=== PATIENT | female | born 1985 | race Caucasian/White ===

== ENCOUNTER 2017-11-14 16:20 | Emergency (ER) | payer BC, MEDICAID ==
--- OUTSIDE RECORDS SUMMARY | 2017-11-14 16:52 | XMS REPORT ---
:1985 External Reference #:[id number] Author Organization [facility] [place] Address [address] [address] Phone [phone] Care Team Providers Name Role Phone Clair Piper N.P. Primary Care Physician Unavailable Payers Type Date Identification Numbers Payment Provider Subscriber Commercial Policy Number: [id number] [employer] Lazaro Cullen PayID: [id number] [address] [address] [place] [address] [facility] Policy Number: [id number] Medicaid Jose Miguel Cullen Group Name: 1 1 [address] PayID: [id number] [place] [address] Problems Description No Information Family History Date Family Member(s) Problem(s) Comments Father Chronic Obstructive Pulmonary Disease (COPD) Father due to COPD () Father Smoker Father Hepatitis C Father Tuberculosis Father Emphysema Father Diabetes Type II Mother Asthma Siblings 3 Sisters, one sister with asthma Social History Type Date Description Comments Marital Status Lives With Lives With Son Lives With Daughter Occupation Homemaker Cigarette Use Former Cigarette Smoker Smoked 1/2 ppd for 15 years ETOH Use Denies alcohol use Smoking Patient is a former smoker Recreational Drug Use Denies Drug Use Daily Caffeine Consumes on average 1 cup of regular coffee per day Exercise Type/Frequency Exercises sporadically Allergies, Adverse Reactions, Alerts Date Description Reaction Status Severity Comments 06/09/2017 Penicillin active rash fever Medications Medication Date Status Form Strength Qnty SIG Indications Ordering Provider Sertraline HCL / Active Tablets 75mg 1 by mouth Unknown 0000 every day Flovent HFA 00/ Active Aerosol 220mcg/Ac inhale two Unknown 0000 t puffs by mouth twice a day Albuterol Sulfate / Active Nebulizer (2.5mg/3M 1 vial via Unknown 0000 L) 0.083% nebulizer 4 times daily as needed Multi For Her / Active Tablets once a day Unknown 0000 Meclizine HCL / Active Tablets 12.5mg as Unknown 0000 directed Vitamin D / Active Tablets 1000Unit 1 every Unknown (Cholecalciferol) 0000 day Vitamin E / Active Capsules 100Unit 1 by mouth Unknown 0000 every day Cetirizine HCL / Active Tablets 10mg 1 by mouth Unknown 0000 every day Doxycycline / Hx Capsules 100mg one tablet Unknown Hyclate 0000 twice daily for 10 days. Probiotic Daily / Hx Capsules 1 by mouth Unknown 0000 every day Levocetirizine / Hx Tablets 5mg one tab Unknown Dihydrochloride 0000 daily Vital Signs Date Vital Result Comment 10/16/2017 Height 64 inches 5'4" Weight 179.00 lb Heart Rate 72 /min BP Systolic Sitting 110 mmHg BP Diastolic Sitting 76 mmHg Respiratory Rate 14 /min O2 % BldC Oximetry 99 % BMI (Body Mass Index) 30.7 kg/m2 Neck Circumference in inches 14 10/13/2017 Heart Rate 90 /min BP Systolic Sitting 98 mmHg BP Diastolic Sitting 62 mmHg Respiratory Rate 16 /min Body Temperature 98.5 F 09/01/2017 Heart Rate 78 /min BP Systolic Sitting 110 mmHg BP Diastolic Sitting 66 mmHg Respiratory Rate 16 /min Body Temperature 98.4 F 07/21/2017 Heart Rate 84 /min Respiratory Rate 16 /min Body Temperature 98.5 F 06/09/2017 Height 65 inches 5'5" Heart Rate 72 /min BP Systolic Sitting 102 mmHg BP Diastolic Sitting 68 mmHg Respiratory Rate 16 /min Body Temperature 99.3 F Results Test Date Test Result H/L Range Note Laboratory test finding 07/21/2017 Surgical Pathology <pending> 1 Cytology Non-Friction Saw Operator SEE RESULT BELOW 1, 2 1 [id number] 2 SEE RESULT BELOW Name: JOSE MIGUEL CULLEN : [address]: Christy Cm MD Acct: [id number] Unit: [id number] AGE: 32 Location: [facility] Re07/21/17 SEX: F Status: REG REF SPEC: [id number] MARIAM: 07/21/17-[address]: Christy Cm MD REQ: [id number] RECD: 07/21/17-170 STATUS: SOUT _ ORDERED: [facility], LEVEL 4 COMMENTS: [id number] FINAL DIAGNOSIS Breast, left, fine needle aspiration: -- Benign adipose tissue and scant benign ductal epithelial elements. See comment. Comment: The aspirate smears demonstrate scattered benign appearing fibroadipose tissue fragments and a few small benign appearing mammary epithelial elements in clusters. Correlation with clinical and imaging findings is recommended. Additional studies is warranted. BREAST LEFT - LEFT BREAST CUST FINE NEEDLE ASPIRATION CLINICAL HISTORY Left breast cyst. PRE-OPERATIVE DIAGNOSIS . GROSS DESCRIPTION 2 Alcohol fixed slide(s) received from clinician and needle rinse in formalin for cell block. Signed (signature on file) William Fermin MD 1041 END OF REPORT * ML=Testing performed at Main Lab DEPARTMENT OF PATHOLOGY, [address] [place] [address] William Fermin M.D. Director [facility] # [id number] Procedures Description No Information Encounters Type Date Location Provider CPT E/M Dx Office Visit 10/13/2017 [facility] [place] [id number] N63.20 2:00p [facility] N63.10 Office Visit 09/01/2017 2:00p [facility] [place] [address] N64.59 [facility] Office Visit 07/21/2017 1:30p [facility] [place] [address] N64.4 [facility] N63.20 Office Visit 06/09/2017 3:00p [facility] [place] [address] N64.4 [facility] N64.59 Plan of Care Future Appointment(s):01/06/2018 1:00 pm - Tracy Odell DNP, RN, BRANCH ASSOCIATE-BC at [facility]11/24/2017 3:00 pm - Christy Cm MD at [facility]10/16/2017 - Anushka Peace, MDR06.83 SnoringNew Orders:Sleep StudyFollow up:7 [id number] Other fatigue
[2017-11-14] MEDS ORDERED: NS 0.9% 1000 ML* 1,000 ML IV ONE (16:59)
[2017-11-14 17:24] LABS: ABS Basophils 0.1 10^3/ul (0-0.2); ABS Eosinophils 0.4 10^3/ul (0-0.6); ABS Monocytes 0.6 10^3/ul (0-0.8); ABS Neutrophils 3.5 10^3/ul (1.5-7.7); ABS Nucleated RBC 0 10^3/ul; Hematocrit 37 % (35-47); Hemoglobin 12.6 g/dl (12.0-16.0); Lymphocyte % 39.8 % (25-47); Mean Corpuscular HGB Conc 34 g/dl (31-36); Mean Corpuscular Hemoglobin 29 pg (27-31); Mean Corpuscular Volume 86 fL (80-97); Mean Platelet Volume 9.4 um3 (7.4-10.4); Nucleated Red Blood Cells % 0; Platelet Count 215 10^3/ul (150-450); Red Cell Distribution Width 14 % (10.5-15); White Blood Count 7.6 10^3/ul (3.5-10.8)
[2017-11-14 18:04] LABS: EGFR Non-African American 102.7 (>60)
[2017-11-14 18:35] LABS: Urine Appearance Clear; Urine Blood 3+ (Negative); Urine Ketones Negative (Negative); Urine Protein 2+(100 mg/dL) (Negative); Urine Specific Gravity 1.003 (1.010-1.030); Urine Urobilinogen Negative (Negative)
[2017-11-14 18:38] LABS: Urine Color Red
--- NOTE | 2017-11-14 19:03 | RAD ---
Indication: 2 days pelvic pain increasing on the RIGHT for the past day. Comparison: May 13, 2012 Technique: Transvaginal pelvic ultrasound. Report: 8.8 x 5.6 x 6.6 cm retroverted uterus is mildly heterogeneous in echotexture without visualized discrete focal lesions. No cystic spaces are identified to strongly favor presence of adenomyosis. 5.4 mm normal thickness endometrium. No significant free pelvic fluid evident. 3.9 x 2.0 x 2.6 cm RIGHT ovary with documented vascular flow is remarkable for small follicles only. 3.5 x 1.8 x 2.1 cm LEFT ovary with documented vascular flow is remarkable for small follicles only. No visualized extra ovarian adnexal region lesions evident. IMPRESSION: Negative pelvic ultrasound.
[2017-11-14] MEDS ORDERED: Morphine VIAL* 4 MG/ML VIAL (1 ml vial) IV ONE (19:04)
[2017-11-14] MEDS ORDERED: Ondansetron ODT TAB* 4 MG PO ONE (19:04)
[2017-11-14] MEDS ORDERED: Iohexol 300* (CONTRAST) 10 ML SDV IV ONE (20:26)
--- NOTE | 2017-11-14 20:56 | RAD ---
INDICATION: Cramping abdominal/RIGHT abdomen pain. Loose stools. COMPARISON: Pelvic ultrasound of the same date. TECHNIQUE: Multidetector CT images were obtained from the lung bases to the ischial tuberosities with 100 mL Omnipaque 300 IV contrast. Multiplanar reformation. REPORT: Unremarkable visualized inferior thorax. The liver, gallbladder, pancreas, and spleen are unremarkable. Negative for CT abnormality of the upper GI, small bowel, or appendix visualized medial and posterior to the cecum. Physiologic small volume of free fluid in the cul-de-sac. Negative for free air or significant hernias. Normal adrenal glands. Unremarkable kidneys with symmetric nephrograms and pyelograms. No abnormality along the course of the nondilated ureters or at the level of the largely decompressed urinary bladder limiting assessment. Pelvic phleboliths noted. Retroverted uterus. No CT abnormality of the adnexal regions. Negative for lymphadenopathy. Normal diameter abdominal aorta and iliac arteries. Normal variant circumaortic LEFT renal vein. Physiologic distention of the IVC. Small Schmorl node endplate herniations at the L3 and L4 vertebral bodies. Negative for suspicious osseous lesions. IMPRESSION: 1. Normal appendix documented. 2. No acute abnormality of the alimentary tract evident. 3. Physiologic small volume of free fluid in the cul-de-sac. 4. Negative for obstructive uropathy.
--- NOTE | 2017-11-14 21:03 | ED ---
Abdominal Pain/Female - HPI Summary HPI Summary: Patient presents with abdominal pain and's. Started on November 11. She reports she typically has. With cramps however this time her cramps are worse than she' s had some clots passed. She reports she is going through a pad an hour for the past 3 days however her pad here does not appear to be saturated after spent here for a while. Reports her menstrual symptoms alone would not have brought her in but she developed dizziness right lower quadrant pain, pain along the right side along with nausea. loose stool and headache at about 12:30 today. Her headache is around her right orbit she denies photophobia, dizziness , neck pain, fevers, chills, vomiting, or. She's been drinking a lot of water today and has had increased urination as a result however she denies dysuria, urgency, frequency, flank pain. She ate this morning without difficulty. She' s been taking Tylenol alternating with ibuprofen (1000 mg and 400 mg respectively) she is a history of ovarian cysts multiple times in the past and she believes they were on her right side. No need for surgical intervention - resolved on their own?. She also has a history of abnormal Pap smears with precancerous cells requiring her to have positive P's. No further surgical intervention such as Leanne Stroud. She has no known history of fibroids edema myosis or other reproductive pathologies. She's been 5 times with 2 miscarriages and 2 living children. One of her children was born with cardiac issues and shortly after 1-year-of lie ( this was about 14 months ago). She denies history of UTI, urinary tract stone. She does reports she's had "issues" with her appendix when she was however this resolved with observation alone. Denies constipation, diarrhea, ulcers colitis, Crohn's, diverticulitis. Only other medical issues are a large thyroid with 2 benign nodules, lumps in her breasts which are being followed, asthma, and seasonal allergies. She has no known history of bleeding disorders nor there any in the family. She follows annually with her TANK CAR INSPECTOR, Dr. Simpson - reports her periods got heavier and more painful after tubal ligation in 2016. She has never tried hormone therapy to control her dysmenorrhea but she is open to this therapy if appropriate. - History of Current Complaint Chief Complaint: EDOBProblems Stated Complaint: FLANK PAIN Time Seen by Provider: 11/14/17 17:54 Hx Obtained From: Patient, Family/Parole Officer - female friend Hx Last Menstrual Period: Unsure, on depo shots Pain Intensity: 7 Allergies/Adverse Reactions: Allergies Allergy/AdvReac Type Severity Reaction Status Date / Time Penicillins Allergy Rash Verified 11/14/17 16:39 PMH/Surg Hx/FS Hx/Imm Hx Endocrine/Hematology History: Denies: Hx Anticoagulant Therapy, Hx Diabetes, Hx Thyroid Disease, Hx Anemia Cardiovascular History: Denies: Hx Hypertension, Hx Pacemaker/ICD Respiratory History: Reports: Hx Asthma Denies: Hx Chronic Obstructive Pulmonary Disease (COPD) GI History: Denies: Hx Jaundice, Hx Ulcer History: Denies: Hx Renal Disease Musculoskeletal History: Reports: Other Musculoskeletal History - broke left arm x2 Sensory History: Reports: Hx Contacts or Glasses Opthamlomology History: Reports: Hx Contacts or Glasses Neurological History: Denies: Hx Dementia, Hx Seizures Psychiatric History: Reports: Hx Anxiety, Hx Depression Denies: Hx Substance Abuse - Cancer History Hx Chemotherapy: No Hx Radiation Therapy: No - Surgical History Surgery Procedure, Year, and Place: D&C 2003 Hx Anesthesia Reactions: No Infectious Disease History: No Infectious Disease History: Denies: Hx Hepatitis, Hx Human Immunodeficiency Virus (HIV), Traveled Outside the [place] in Last 30 Days - Social History Alcohol Use: None Substance Use Type: Reports: None Smoking Status (MU): Never Smoked Tobacco Type: Cigarettes Have You Smoked in the Last Year: No Physical Exam Vital Signs On Initial Exam: Initial Vitals Temp Pulse Resp BP Pulse Ox 98.1 F 59 14 137/83 100 11/14/17 16:22 11/14/17 16:22 11/14/17 16:22 11/14/17 16:22 11/14/17 16:22 Diagnostics - Vital Signs Vital Signs Temp Pulse Resp BP Pulse Ox 11/14/17 19:32 64 96 11/14/17 19:30 60 122/64 98 11/14/17 19:22 18 11/14/17 16:22 98.1 F 59 14 137/83 100 - Laboratory Lab Results: Lab Results 11/14/17 11/14/17 11/14/17 Range/Units 17:12 17:12 18:19 WBC 7.6 (3.5-10.8) 10^3/ul RBC 4.30 (4.0-5.4) 10^6/ul Hgb 12.6 (12.0-16.0) g/dl Hct 37 (35-47) % MCV 86 (80-97) fL MCH 29 (27-31) pg MCHC 34 (31-36) g/dl RDW 14 (10.5-15) % Plt Count 215 (150-450) 10^3/ul MPV 9.4 (7.4-10.4) um3 Neut % (Auto) 46.9 (38-83) % Lymph % (Auto) 39.8 (25-47) % Bent % (Auto) 7.3 H (0-7) % Eos % (Auto) 5.0 (0-6) % Baso % (Auto) 1.0 (0-2) % Absolute Neuts (auto) 3.5 (1.5-7.7) 10^3/ul Absolute Lymphs (auto) 3.0 (1.0-4.8) 10^3/ul Absolute Monos (auto) 0.6 (0-0.8) 10^3/ul Absolute Eos (auto) 0.4 (0-0.6) 10^3/ul Absolute Basos (auto) 0.1 (0-0.2) 10^3/ul Absolute Nucleated RBC 0 10^3/ul Nucleated RBC % 0 Sodium 138 L (139-145) mmol/L Potassium 3.6 (3.5-5.0) mmol/L Chloride 105 (101-111) mmol/L Carbon Dioxide 26 (22-32) mmol/L Anion Gap 7 (2-11) mmol/L BUN 14 (6-24) mg/dL Creatinine 0.67 (0.51-0.95) mg/dL Est GFR ( Amer) 132.0 (>60) Est GFR (Non-Af Amer) 102.7 (>60) BUN/Creatinine Ratio 20.9 H (8-20) Glucose 75 (70-100) mg/dL Calcium 9.3 (8.6-10.3) mg/dL Total Bilirubin 0.20 (0.2-1.0) mg/dL AST 14 (13-39) U/L ALT 14 (7-52) U/L Alkaline Phosphatase 59 (34-104) U/L C-Reactive Protein < 1.00 (< 5.00) mg/L Total Protein 6.9 (6.4-8.9) g/dL Albumin 3.9 (3.2-5.2) g/dL Globulin 3.0 (2-4) g/dL Albumin/Globulin Ratio 1.3 (1-3) Beta HCG, Quant < 0.60 mIU/mL Urine Color Red A Urine Appearance Clear Urine pH 8.0 (5-9) Ur Specific [place] 1.003 L (1.010-1.030) Urine Protein 2+(100 mg/dl) A (Negative) Urine Ketones Negative (Negative) Urine Blood 3+ A (Negative) Urine Nitrate Negative (Negative) Urine Bilirubin Negative (Negative) Urine Urobilinogen Negative (Negative) Ur Leukocyte Esterase Negative (Negative) Urine WBC (Auto) Trace(0-5/hpf) (Absent) Urine RBC (Auto) 3+(>10/hpf) A (Absent) Ur Squamous Epith Cells Present A (Absent) Urine Bacteria 1+ A (Absent) Hyaline Casts Present A (Absent) Urine Glucose Negative (Negative) Result Diagrams: 11/14/17 17:12 11/14/17 17:12 Lab Statement: Any lab studies that have been ordered have been reviewed, and results considered in the medical decision making process. Discharge - Sign-Out/Discharge Documenting (check all that apply): Discharge/Admit/Transfer - Discharge Plan Condition: Stable Disposition: HOME Prescriptions: Naproxen TAB* [Naprosyn 250 mg TAB*] 500 mg PO Q12HR PRN #20 tab PRN Reason: Pain Patient Education Materials: Dysmenorrhea (ED), Menorrhagia (ED) Referrals: Celi Piper NP [Primary Care Provider] - Deon Simpson MD [Medical Doctor] - Additional Instructions: The definitive cause of your pain was not identified today however there is strong clinical suspicion of dysmenorrhea or painful menstruation. This may be treated with warm compresses, [place] oil packs, warm baths, healthy nutrition and hydration, naproxen which was sent to your pharmacy and possibly hormone therapy. The latter may be discussed with her saturation diver - call Friday to schedule an appointment. *If in the meantime you develop fever, chills, vomiting, diarrhea, bleeding through a pad and/or tampon every hour for 24 consecutive hours, fatigue, chest pain, shortness of breath, return to the emergency department. - Billing Disposition and Condition Condition: STABLE Disposition: HOME
[2017-11-14 22:03] VITALS: BP 112/78
== END 2017-11-14 22:03 | disposition home or self-care (01) ==
LOC: ED 16:20
DX: N92.0 Excessive and frequent menstruation with regular cycle (principal); R10.84 Generalized abdominal pain
CPT/HCPCS: 36415; 74177; 76830; 80053; 81003; 81015; 84702; 85025; 86140; 87086; 96361; 96374; 99283; A9270-GY; J2270; Q9967

== ENCOUNTER 2018-06-09 19:15 | Emergency (ER) | payer BC ==
[2018-06-09 20:18] LABS: ABS Basophils 0.1 10^3/ul (0-0.2); ABS Eosinophils 0.4 10^3/ul (0-0.6); ABS Lymphocytes 3.5 10^3/ul (1.0-4.8); ABS Monocytes 0.8 10^3/ul (0-0.8); ABS Neutrophils 5.6 10^3/ul (1.5-7.7); ABS Nucleated RBC 0 10^3/ul; Eosinophil % 3.7 %; Hematocrit 33 % (35-47); Hemoglobin 10.9 g/dl (12.0-16.0); Lymphocyte % 34.2 %; Mean Corpuscular HGB Conc 34 g/dl (31-36); Mean Corpuscular Hemoglobin 30 pg (27-31); Mean Corpuscular Volume 88 fL (80-97); Mean Platelet Volume 8.6 fL (7.4-10.4); Nucleated Red Blood Cells % 0; Platelet Count 299 10^3/ul (150-450); Red Cell Distribution Width 14 % (10.5-15); White Blood Count 10.3 10^3/ul (3.5-10.8)
[2018-06-09 20:37] LABS: ALT 20 U/L (7-52); AST 18 U/L (13-39); Albumin 4.3 g/dL (3.2-5.2); Albumin/Globulin Ratio 1.4 (1-3); Alkaline Phosphatase 57 U/L (34-104); Anion Gap 5 mmol/L (2-11); BUN/Creatinine Ratio 19.4 (8-20); Blood Urea Nitrogen 12 mg/dL (6-24); C Reactive Protein < 1.00 mg/L (<8.01); CO2 Carbon Dioxide 27 mmol/L (22-32); Calcium 9.3 mg/dL (8.6-10.3); Chloride 105 mmol/L (101-111); EGFR Non-African American 112.3 (>60); Glucose 94 mg/dL (70-100); Potassium 3.9 mmol/L (3.5-5.0); Sodium 137 mmol/L (135-145); Total Protein 7.3 g/dL (6.4-8.9)
[2018-06-09 20:43] LABS: HCG Pregnancy < 0.60 mIU/mL
[2018-06-09] MEDS ORDERED: Famotidine TAB* 20 MG PO ONE (20:53)
[2018-06-09] MEDS ORDERED: Pantoprazole TAB (NF) 40 MG TAB PO ONE (20:53)
[2018-06-09] MEDS ORDERED: Lidocaine 2% VISCOUS* 15 ML UDC PO ONE (20:53)
[2018-06-09] MEDS ORDERED: Sucralfate TAB* 1 GM PO ONE (20:53)
[2018-06-09] MEDS ORDERED: Al Hydrox/Mg Hydrox/Simet LIQ* 30 ML UDC PO ONE (20:53)
[2018-06-09 20:56] LABS: Urine Appearance Clear; Urine Bilirubin Negative (Negative); Urine Blood Negative (Negative); Urine Color Yellow; Urine Glucose Negative (Negative); Urine Ketones Negative (Negative); Urine Nitrite Negative (Negative); Urine Protein Negative (Negative); Urine Specific Gravity 1.014 (1.010-1.030); Urine Urobilinogen Negative (Negative)
--- NOTE | 2018-06-09 20:57 | ED ---
Abdominal Pain/Female - HPI Summary HPI Summary: This patient is a 32 year old F presenting to [facility] with a chief complaint of intermittent upper abdominal pain since 2 weeks ago. The patient rates the pain 8/10 in severity. Symptoms aggravated by lying down. Patient reports dizziness, difficulty eating, nausea, fransisca-looking stools, frequent belching, pain in stomach when urinating, and heartburn. Patient denies vomiting, blood in stools , and back pain. She took Xanax last night which did not help the pain. She has not taken ibuprofen or Aleve. Patient had a couple drinks of EtOH on 06/06/2018 which did not aggravate or alleviate her symptoms. Patient has a PSHx of D&C, tubal ligation, wisdom extraction, and lumpectomy. She is a former smoker (hasn t smoked for 6 years) and drinks 1 cup of coffee per day. - History of Current Complaint Chief Complaint: EDAbdPain Stated Complaint: ABD PAIN/NAUSEA Time Seen by Provider: 06/09/18 20:43 Hx Obtained From: Patient Hx Last Menstrual Period: Unsure, on depo shots Onset/Duration: Lasting Weeks - Since 2 weeks ago, Still Present Timing: Intermittent Episode Lasting - "Random" Severity Currently: Severe Pain Intensity: 8 Pain Scale Used: 0-10 Numeric Location: Epigastric Radiates: No Associated Signs and Symptoms: Positive: Nausea, Other: - Dizziness, difficulty eating, "fransisca-looking stools," frequent belching, increased pain in stomach secondary to urinating, and heartburn.. Negative: Back Pain, Blood in Stool, Vomiting Allergies/Adverse Reactions: Allergies Allergy/AdvReac Type Severity Reaction Status Date / Time Penicillins Allergy Rash Verified 04/24/18 14:00 PMH/Surg Hx/FS Hx/Imm Hx Endocrine/Hematology History: Denies: Hx Anticoagulant Therapy, Hx Diabetes, Hx Thyroid Disease, Hx Anemia Cardiovascular History: Denies: Hx Hypertension, Hx Pacemaker/ICD Respiratory History: Reports: Hx Asthma Denies: Hx Chronic Obstructive Pulmonary Disease (COPD) GI History: Denies: Hx Jaundice, Hx Ulcer History: Denies: Hx Renal Disease Musculoskeletal History: Reports: Other Musculoskeletal History - broke left arm x2 Sensory History: Reports: Hx Contacts or Glasses Denies: Hx Hearing Aid Opthamlomology History: Reports: Hx Contacts or Glasses Neurological History: Denies: Hx Dementia, Hx Seizures Psychiatric History: Reports: Hx Anxiety, Hx Depression Denies: Hx Panic Disorder, Hx Substance Abuse - Cancer History Hx Chemotherapy: No Hx Radiation Therapy: No - Surgical History Surgery Procedure, Year, and Place: D&C 2003. TUBAL 2016. WISDOM TEETH 2014 Hx Anesthesia Reactions: No Infectious Disease History: No Infectious Disease History: Denies: Hx Hepatitis, Hx Human Immunodeficiency Virus (HIV), Traveled Outside the [place] in Last 30 Days - Family History Known Family History: Positive: Cardiac Disease, Diabetes, Other - Mental Health : depression, anxiety, schizophrenia - Social History Alcohol Use: None Substance Use Type: Reports: None Smoking Status (MU): Former Smoker Type: Cigarettes Have You Smoked in the Last Year: No Review of Systems Positive: Abdominal Pain - intermittent upper abd pain, Nausea, Other - Difficulty eating, "fransisca-looking stools," belching, increased pain in stomach secondary to urination, and heartburn. Denies blood in stool.. Negative: Vomiting Positive: Other - Denies back pain. Neurological: Other - Dizziness All Other Systems Reviewed And Are Negative: Yes Physical Exam - Summary Physical Exam Summary: Appearance: Well appearing, no pain distress Skin: warm, dry, reflects adequate perfusion Head/face: normal Eyes: EOMI, DIGNA ENT: mucous membranes moist Neck: supple, non-tender Respiratory: CTA, breath sounds present Cardiovascular: RRR, pulses symmetrical Abdomen: moderate epigastric pain on palpation, no rebound or guarding, no RUE or RLE tenderness Bowel Sounds: present Musculoskeletal: normal, strength/ROM intact Neuro: normal, sensory motor intact, A&Ox3 Triage Information Reviewed: Yes Vital Signs On Initial Exam: Initial Vitals Temp Pulse Resp BP Pulse Ox 98.8 F 87 20 109/77 98 06/09/18 19:20 06/09/18 19:20 06/09/18 19:20 06/09/18 19:20 06/09/18 19:20 Vital Signs Reviewed: Yes Diagnostics - Vital Signs Vital Signs Temp Pulse Resp BP Pulse Ox 06/09/18 20:44 121/68 06/09/18 20:43 68 100 06/09/18 19:20 98.8 F 87 20 109/77 98 - Laboratory Lab Results: Lab Results 06/09/18 06/09/18 06/09/18 Range/Units 20:06 20:06 20:06 WBC 10.3 (3.5-10.8) 10^3/ul RBC 3.70 L (4.00-5.40) 10^6/ul Hgb 10.9 L (12.0-16.0) g/dl Hct 33 L (35-47) % MCV 88 (80-97) fL MCH 30 (27-31) pg MCHC 34 (31-36) g/dl RDW 14 (10.5-15) % Plt Count 299 (150-450) 10^3/ul MPV 8.6 (7.4-10.4) fL Neut % (Auto) 53.7 % Lymph % (Auto) 34.2 % [place] % (Auto) 7.5 % Eos % (Auto) 3.7 % Baso % (Auto) 0.9 % Absolute Neuts (auto) 5.6 (1.5-7.7) 10^3/ul Absolute Lymphs (auto) 3.5 (1.0-4.8) 10^3/ul Absolute Monos (auto) 0.8 (0-0.8) 10^3/ul Absolute Eos (auto) 0.4 (0-0.6) 10^3/ul Absolute Basos (auto) 0.1 (0-0.2) 10^3/ul Absolute Nucleated RBC 0 10^3/ul Nucleated RBC % 0 Sodium 137 (135-145) mmol/L Potassium 3.9 (3.5-5.0) mmol/L Chloride 105 (101-111) mmol/L Carbon Dioxide 27 (22-32) mmol/L Anion Gap 5 (2-11) mmol/L BUN 12 (6-24) mg/dL Creatinine 0.62 (0.51-0.95) mg/dL Est GFR ( Amer) 135.9 (>60) Est GFR (Non-Af Amer) 112.3 (>60) BUN/Creatinine Ratio 19.4 (8-20) Glucose 94 (70-100) mg/dL Lactic Acid 0.6 (0.5-2.0) mmol/L Calcium 9.3 (8.6-10.3) mg/dL Total Bilirubin 0.20 (0.2-1.0) mg/dL AST 18 (13-39) U/L ALT 20 (7-52) U/L Alkaline Phosphatase 57 (34-104) U/L C-Reactive Protein < 1.00 (<8.01) mg/L Total Protein 7.3 (6.4-8.9) g/dL Albumin 4.3 (3.2-5.2) g/dL Globulin 3.0 (2-4) g/dL Albumin/Globulin Ratio 1.4 (1-3) Lipase 26 (11.0-82.0) U/L Beta HCG, Quant < 0.60 mIU/mL Result Diagrams: 06/09/18 20:06 06/09/18 20:06 Lab Statement: Any lab studies that have been ordered have been reviewed, and results considered in the medical decision making process. Re-Evaluation - Re-Evaluation 1 Re-Evaluation Time: 21:39 Change: Improved Comment: Only mild improvement with treatment Abdominal Pain Fem Course/Dx - Course Course Of Treatment: Nurse's note reviewed. Patient presents with high epigastric discomfort and belching. No pain in the right upper quadrant or fluctuation with food. Laboratories benign. No melena. No hematemesis. She did with GI meds and pain control here with improvement. Follow-up with primary care physician, possible need for GI endoscopy. - Diagnoses Differential Diagnosis: Positive: Gall Bladder Disease, Irritable Bowel Syndrome , Pancreatitis, Peptic Ulcer Disease, Urinary Tract Infection Provider Diagnoses: Epigastric pain, Gastritis Discharge - Sign-Out/Discharge Documenting (check all that apply): Patient Departure - D/C - Discharge Plan Condition: Improved Disposition: HOME Prescriptions: Famotidine TAB* [Pepcid 20 MG TAB*] 40 mg PO BID #10 tab Omeprazole CAP* [Prilosec CAP* 20 MG] 20 mg PO BEDTIME #30 Sucralfajess [Carafate] 1 gm PO ACHS #40 tablet Patient Education Materials: Gastritis (ED) Referrals: Kiara Morin DO [Primary Care Provider] - Additional Instructions: [place] diet, avoid spicy or acidic foods. Avoid caffeine and alcohol. No ibuprofen, aspirin or related medications. Return with dark or murmur-colored stools, increased pain, worse, new symptoms or other concerns. Call your doctor first thing in the morning to schedule prompt follow-up. - Billing Disposition and Condition Condition: IMPROVED Disposition: Home - Attestation Statements Document Initiated by Karley: Yes Documenting Scribe: Jhon Galloway Provider For Whom Scribe is Documenting (Include Credential): Porfirio Duff MD Scribe Attestation: I, Jhon Galloway, scribed for Porfirio Duff MD on 06/10/18 at 0117. Scribe Documentation Reviewed: Yes Provider Attestation: The documentation as recorded by the Jhon christian accurately reflects the service I personally performed and the decisions made by me, Porfirio Duff MD Status of Scribe Document: Viewed
[2018-06-09] MEDS ORDERED: oxyCODONE/Acetamin 5/325 MG* TAB PO ONE (21:39)
[2018-06-09 22:21] VITALS: BP 121/76
== END 2018-06-09 22:20 | disposition home or self-care (01) ==
LOC: ED 19:15
DX: K29.70 Gastritis, unspecified, without bleeding (principal); R10.13 Epigastric pain; J45.909 Unspecified asthma, uncomplicated; F32.9 Major depressive disorder, single episode, unspecified; F41.9 Anxiety disorder, unspecified; Z87.891 Personal history of nicotine dependence
CPT/HCPCS: 36415; 80053; 81003; 83605; 83690; 84702; 85025; 86140; 99282; A9270-GY

== ENCOUNTER 2018-06-12 15:12 | Emergency (ER) | payer BC ==
[2018-06-12 17:33] LABS: ABS Basophils 0.1 10^3/ul (0-0.2); ABS Eosinophils 0.4 10^3/ul (0-0.6); ABS Lymphocytes 3.9 10^3/ul (1.0-4.8); ABS Monocytes 0.7 10^3/ul (0-0.8); ABS Neutrophils 5.5 10^3/ul (1.5-7.7); ABS Nucleated RBC 0 10^3/ul; Eosinophil % 3.9 %; Hematocrit 33 % (35-47); Hemoglobin 10.9 g/dl (12.0-16.0); Lymphocyte % 36.6 %; Mean Corpuscular HGB Conc 33 g/dl (31-36); Mean Corpuscular Hemoglobin 30 pg (27-31); Mean Corpuscular Volume 88 fL (80-97); Mean Platelet Volume 8.9 fL (7.4-10.4); Nucleated Red Blood Cells % 0; Platelet Count 308 10^3/ul (150-450); Red Blood Count 3.68 10^6/ul (4.00-5.40); Red Cell Distribution Width 14 % (10.5-15); White Blood Count 10.6 10^3/ul (3.5-10.8)
[2018-06-12 17:51] LABS: ALT 15 U/L (7-52); AST 14 U/L (13-39); Albumin 4.1 g/dL (3.2-5.2); Albumin/Globulin Ratio 1.5 (1-3); Alkaline Phosphatase 55 U/L (34-104); Anion Gap 3 mmol/L (2-11); BUN/Creatinine Ratio 18.2 (8-20); Blood Urea Nitrogen 12 mg/dL (6-24); C Reactive Protein < 1.00 mg/L (<8.01); CO2 Carbon Dioxide 26 mmol/L (22-32); Calcium 9.1 mg/dL (8.6-10.3); Chloride 107 mmol/L (101-111); EGFR Non-African American 104.5 (>60); Globulin 2.8 g/dL (2-4); Glucose 92 mg/dL (70-100); Potassium 3.9 mmol/L (3.5-5.0); Sodium 136 mmol/L (135-145); Total Protein 6.9 g/dL (6.4-8.9)
[2018-06-12] MEDS ORDERED: Ondansetron INJ* 2 MG/ML VIAL IV ONE (19:05)
[2018-06-12] MEDS ORDERED: Morphine VIAL* 4 MG/ML VIAL (1 ml vial) IV ONE (19:05)
[2018-06-12] MEDS ORDERED: NS 0.9% 1000 ML* 1,000 ML IV ONE (19:05)
--- NOTE | 2018-06-12 19:23 | ED ---
GI/ HPI - HPI Summary HPI Summary: 32-year-old female presents with periumbilical pain for the past couple weeks. She states that this been increasing in intensity. She admits occasional nausea but no vomiting. She states that it is sharp like pain. Is worse when she tries to eat something. she states it changes locations where radiates. States it mostly the radiates into the left upper quadrant. She denies any blood in her stool or dark tarry stool. no abnormal vaginal discharge. no urinary symptoms. no flank pain. is not a ETOH drinker or chronic ibuprofen user. no chest pain or SOB. is on meds for asthma daily. is taking sucralfate and omeprazole daily starting a couple days ago with no relief. - History of Current Complaint Chief Complaint: EDAbdPain Time Seen by Provider: 06/12/18 18:55 Stated Complaint: ABD PAIN Hx Last Menstrual Period: Unsure, on depo shots Pain Intensity: 8 - Allergy/Home Medications Allergies/Adverse Reactions: Allergies Allergy/AdvReac Type Severity Reaction Status Date / Time Penicillins Allergy Rash Verified 04/24/18 14:00 PMH/Surg Hx/FS Hx/Imm Hx Endocrine/Hematology History: Denies: Hx Anticoagulant Therapy, Hx Diabetes, Hx Thyroid Disease, Hx Anemia Cardiovascular History: Denies: Hx Hypertension, Hx Pacemaker/ICD Respiratory History: Reports: Hx Asthma Denies: Hx Chronic Obstructive Pulmonary Disease (COPD) GI History: Denies: Hx Jaundice, Hx Ulcer History: Denies: Hx Renal Disease Musculoskeletal History: Reports: Other Musculoskeletal History - broke left arm x2 Sensory History: Reports: Hx Contacts or Glasses Denies: Hx Hearing Aid Opthamlomology History: Reports: Hx Contacts or Glasses Neurological History: Denies: Hx Dementia, Hx Seizures Psychiatric History: Reports: Hx Anxiety, Hx Depression Denies: Hx Panic Disorder, Hx Substance Abuse - Cancer History Hx Chemotherapy: No Hx Radiation Therapy: No - Surgical History Surgery Procedure, Year, and Place: D&C 2003. TUBAL 2016. WISDOM TEETH 2013 Hx Anesthesia Reactions: No Infectious Disease History: No Infectious Disease History: Denies: Hx Hepatitis, Hx Human Immunodeficiency Virus (HIV), Traveled Outside the [place] in Last 30 Days - Family History Known Family History: Positive: Cardiac Disease, Diabetes, Other - Mental Health : depression, anxiety, schizophrenia - Social History Alcohol Use: None Substance Use Type: Reports: None Smoking Status (MU): Former Smoker Type: Cigarettes Have You Smoked in the Last Year: No Review of Systems Negative: Fever Negative: Chest Pain Negative: Shortness Of Breath Positive: Abdominal Pain, Nausea. Negative: Vomiting, Diarrhea Negative: dysuria All Other Systems Reviewed And Are Negative: Yes Physical Exam Triage Information Reviewed: Yes Vital Signs On Initial Exam: Initial Vitals Temp Pulse Resp BP Pulse Ox 99.3 F 77 16 113/69 100 06/12/18 15:21 06/12/18 15:21 06/12/18 15:21 06/12/18 15:21 06/12/18 15:21 Vital Signs Reviewed: Yes Appearance: Positive: Well-Appearing Skin: Positive: Warm, Dry Head/Face: Positive: Normal Head/Face Inspection Eyes: Positive: Normal, Conjunctiva Clear ENT: Positive: Pharynx normal Respiratory/Lung Sounds: Positive: Clear to Auscultation, Breath Sounds Present Cardiovascular: Positive: Normal, RRR Abdomen Description: Positive: Soft, Other: - tenderness periumbilically severe. Negative: CVA Tenderness (R), CVA Tenderness (L) Bowel Sounds: Positive: Present Musculoskeletal: Positive: Normal Neurological: Positive: Normal Psychiatric: Positive: Normal Diagnostics - Vital Signs Vital Signs Temp Pulse Resp BP Pulse Ox 06/12/18 15:21 99.3 F 77 16 113/69 100 - Laboratory Lab Results: Lab Results 06/12/18 06/12/18 06/12/18 Range/Units 17:25 17:25 17:25 WBC 10.6 (3.5-10.8) 10^3/ul RBC 3.68 L (4.00-5.40) 10^6/ul Hgb 10.9 L (12.0-16.0) g/dl Hct 33 L (35-47) % MCV 88 (80-97) fL MCH 30 (27-31) pg MCHC 33 (31-36) g/dl RDW 14 (10.5-15) % Plt Count 308 (150-450) 10^3/ul MPV 8.9 (7.4-10.4) fL Neut % (Auto) 52.1 % Lymph % (Auto) 36.6 % [place] % (Auto) 6.7 % Eos % (Auto) 3.9 % Baso % (Auto) 0.7 % Absolute Neuts (auto) 5.5 (1.5-7.7) 10^3/ul Absolute Lymphs (auto) 3.9 (1.0-4.8) 10^3/ul Absolute Monos (auto) 0.7 (0-0.8) 10^3/ul Absolute Eos (auto) 0.4 (0-0.6) 10^3/ul Absolute Basos (auto) 0.1 (0-0.2) 10^3/ul Absolute Nucleated RBC 0 10^3/ul Nucleated RBC % 0 Sodium 136 (135-145) mmol/L Potassium 3.9 (3.5-5.0) mmol/L Chloride 107 (101-111) mmol/L Carbon Dioxide 26 (22-32) mmol/L Anion Gap 3 (2-11) mmol/L BUN 12 (6-24) mg/dL Creatinine 0.66 (0.51-0.95) mg/dL Est GFR ( Amer) 126.4 (>60) Est GFR (Non-Af Amer) 104.5 (>60) BUN/Creatinine Ratio 18.2 (8-20) Glucose 92 (70-100) mg/dL Lactic Acid 0.6 (0.5-2.0) mmol/L Calcium 9.1 (8.6-10.3) mg/dL Total Bilirubin 0.30 (0.2-1.0) mg/dL AST 14 (13-39) U/L ALT 15 (7-52) U/L Alkaline Phosphatase 55 (34-104) U/L C-Reactive Protein < 1.00 (<8.01) mg/L Total Protein 6.9 (6.4-8.9) g/dL Albumin 4.1 (3.2-5.2) g/dL Globulin 2.8 (2-4) g/dL Albumin/Globulin Ratio 1.5 (1-3) Lipase 17 (11.0-82.0) U/L Result Diagrams: 06/12/18 17:25 06/12/18 17:25 Lab Statement: Any lab studies that have been ordered have been reviewed, and results considered in the medical decision making process. - Ultrasound No standard instances Ultrasound Interpretation Completed By: Radiologist Summary of Ultrasound Findings: IMPRESSION: Normal ultrasound of the right upper quadrant. GIGU Course/Dx - Course Course Of Treatment: 32-year-old female presents with periumbilical pain for the past 3 weeks. She is not able to eat anything due to the pain. Pain is worse when she eats. No blood or dark tarry stool. She admits to occasional nausea but no vomiting. No fevers. On exam severe tenderness periumbilically. Lab work is similar to when seen here 3 days ago and is within normal limits. A gallbladder ultrasound is normal. Discussed with patient and will get CT due to the extreme amount of pain. after seeing patient, she soon became agitated and left. - Diagnoses Differential Diagnoses - Female: Appendicitis, Gall Bladder Disease, Gastritis, Irritable Bowel Syndrome Provider Diagnoses: Abdominal pain Discharge - Sign-Out/Discharge Documenting (check all that apply): Patient Departure - Discharge Plan Condition: Stable Disposition: ELOPEMENT Referrals: Kiara Morin DO [Primary Care Provider] - - Billing Disposition and Condition Condition: STABLE Disposition: Elopement
[2018-06-12 19:38] VITALS: BP 124/68
== END 2018-06-12 19:38 | disposition home or self-care (01) ==
LOC: ED 15:12
DX: R10.9 Unspecified abdominal pain (principal); Z87.891 Personal history of nicotine dependence
CPT/HCPCS: 36415; 76705; 80053; 83605; 83690; 85025; 86140; 96361; 96374; 96375; 99281; J2270; J2405

== ENCOUNTER 2018-10-19 17:37 | Emergency (ER) | payer BC ==
[2018-10-19] MEDS ORDERED: NS 0.9% 1000 ML** 2,000 ML IV ONE (17:49)
[2018-10-19] MEDS ORDERED: Dexamethasone IV* 4 MG/ML 1 ML (4 MG) IV SLOW PU ONE (17:49)
[2018-10-19] MEDS ORDERED: Metoclopramide IV* 5 MG/ML 2 ML VIAL IV SLOW PU ONE (17:49)
--- NOTE | 2018-10-19 17:56 | ED ---
Headache - HPI Summary HPI Summary: Pt is a 33 y/o F presenting to the ED brought in by EMS for a headache onset currently rated at 8/10 in severity. The pt went to [facility] today to get seen and EMS reports that her vitals were all stable. She c/o GARCIA in the R frontal area, nausea, fatigue, hot flashes, diaphoresis, some paresthesia in her hands, and dizziness with associated blurred vision and diplopia. Pt denies any fever, chills, erythema of eyes, photophobia, sore throat, CP, SOB , cough, abdominal pain, N/V, dysuria, hematuria, myalgia, edema, rash, congestion, allergies, diarrhea, or body aches. She has hx of seasonal allergies that have not developed into a GARCIA before, and no hx of migraines. She has been told in the past that her blood is prone to clotting, and oppositely, that her blood is too thin. She also did not take any pain medications d/t current ulcer. LNMP 10/05/18. - History Of Current Complaint Stated Complaint: HEADACHE/DIZZINESS/NAUSEA PER EMS Hx Obtained From: Patient, EMS Hx Last Menstrual Period: Unsure, on depo shots Onset/Duration: Gradual Onset, Started days ago, Still Present Initially Headache Was: Severe Currently Pain Is: Current Pain Scale(0-10)= - 8, Severe Timing: Constant, Days Location of Headache: Frontal - right Aggravating Factor: Nothing Allevating Factors: Nothing Associated Signs And Symptoms: Dizziness, Nausea, Visual Changes - Allergies/Home Medications Allergies/Adverse Reactions: Allergies Allergy/AdvReac Type Severity Reaction Status Date / Time Penicillins Allergy Rash & Verified 10/15/18 12:45 Fever Home Medications: Home Medications Famotidine TAB* [Pepcid 20 MG TAB*] 20 mg PO BID 10/19/18 [History Confirmed ] Mometasone NASAL (NF) [Nasonex (NF)] 2 spray BOTH NARES DAILY 10/19/18 [History Confirmed 10/19/18] Sertraline* [Zoloft*] 50 mg PO DAILY 10/19/18 [History Confirmed 10/19/18] Sertraline* [Zoloft*] 100 mg PO DAILY 10/19/18 [History Confirmed 10/19/18] PMH/Surg Hx/FS Hx/Imm Hx Previously Healthy: Yes Endocrine/Hematology History: Denies: Hx Anticoagulant Therapy, Hx Diabetes, Hx Thyroid Disease, Hx Anemia Cardiovascular History: Denies: Hx Hypertension, Hx Pacemaker/ICD Respiratory History: Reports: Hx Asthma Denies: Hx Chronic Obstructive Pulmonary Disease (COPD) GI History: Denies: Hx Jaundice, Hx Ulcer History: Denies: Hx Renal Disease Musculoskeletal History: Reports: Other Musculoskeletal History - broke left arm x2 Sensory History: Reports: Hx Contacts or Glasses Denies: Hx Hearing Aid Opthamlomology History: Reports: Hx Contacts or Glasses Neurological History: Denies: Hx Dementia, Hx Migraine, Hx Seizures Psychiatric History: Reports: Hx Anxiety, Hx Depression Denies: Hx Panic Disorder, Hx Substance Abuse - Cancer History Hx Chemotherapy: No Hx Radiation Therapy: No - Surgical History Surgery Procedure, Year, and Place: D&C 2003. TUBAL 2016. WISDOM TEETH 2013 Hx Anesthesia Reactions: No Infectious Disease History: No Infectious Disease History: Denies: Hx Hepatitis, Hx Human Immunodeficiency Virus (HIV), Traveled Outside the [place] in Last 30 Days - Family History Known Family History: Positive: Cardiac Disease, Diabetes, Other - Mental Health : depression, anxiety, schizophrenia. Negative: migraines - Social History Alcohol Use: None Hx Substance Use: No Substance Use Type: Reports: None Hx Tobacco Use: Yes Smoking Status (MU): Former Smoker Type: Cigarettes Have You Smoked in the Last Year: No Review of Systems Positive: Fatigue, Skin Diaphoresis. Negative: Fever, Chills Positive: Blurred Vision, Diplopia. Negative: Photophobia, Erythema Negative: Sore Throat, Nasal Discharge Negative: Chest Pain Negative: Shortness Of Breath, Cough Positive: Nausea. Negative: Abdominal Pain, Vomiting, Diarrhea Negative: dysuria, hematuria Negative: Myalgia, Edema Negative: Rash Neurological: Other - dizziness Positive: Headache, Paresthesia All Other Systems Reviewed And Are Negative: Yes Physical Exam - Summary Physical Exam Summary: Constitutional: Well-developed, Well-nourished, Alert. (-) Distressed Skin: Warm, Dry HENT: Normocephalic; Atraumatic. GARCIA distribution is R frontal. No nuchal rigidity, no sinus tenderness. Eyes: Conjunctiva normal Neck: Musculoskeletal ROM normal neck. (-) JVD, (-) Stridor, (-) Tracheal deviation Cardio: Rhythm regular, rate normal, Heart sounds normal; Intact distal pulses; The pedal pulses are 2+ and symmetric. Radial pulses are 2+ and symmetric. (-) Murmur Pulmonary/Chest wall: Effort normal. (-) Respiratory distress, (-) Wheezes, (-) Rales Abd: Soft. (-) Tenderness, (-) Distension, (-) Guarding, (-) Rebound Musculoskeletal: (-) Edema Lymph: (-) Cervical adenopathy Neuro: Alert, Oriented x3, Strength normal, Cranial nerves II-XII are grossly intact. (-) Dysmetria, (-) Nystagmus, (-) Ataxia by finger to nose testing, (-) Sensory deficit. Psych: Mood and affect Normal Triage Information Reviewed: Yes Vital Signs On Initial Exam: Initial Vitals Temp Pulse Resp BP Pulse Ox 98.3 F 65 18 114/81 100 10/19/18 17:39 10/19/18 17:39 10/19/18 17:39 10/19/18 17:39 10/19/18 17:39 Vital Signs Reviewed: Yes - [place] Coma Scale Best Eye Response: 4 - Spontaneous Best Motor Response: 6 - Obeys Commands Best Verbal Response: 5 - Oriented Coma Scale Total: 15 Diagnostics - Vital Signs Vital Signs Temp Pulse Resp BP Pulse Ox 10/19/18 17:39 98.3 F 65 18 114/81 100 - Laboratory Result Diagrams: 10/19/18 17:57 10/19/18 17:57 Lab Statement: Any lab studies that have been ordered have been reviewed, and results considered in the medical decision making process. Re-Evaluation - Re-Evaluation First Eval Re-Evaluation Time: 21:04 Change: Unchanged Comment: Patient states pain is unchanged. She does appear generally well and does not appear to be in tremendous amount of pain. She is still having some nausea. She is asking for discharge as she has a 4-year-old home and would prefer to try more medication there. I have ordered some oral Benadryl, oral Compazine, and IV Toradol for her. Her CT scan is unremarkable. I also did a funduscopic exam and she has sharp disc margins; I do not believe she has idiopathic intracranial hypertension. She is stable for discharge at this point. Headache Course/Dx - Course Course Of Treatment: Pt is a 33 y/o F presenting to the ED brought in by EMS for a headache onset 10/15/18 currently rated at 8/10 in severity. She c/o GARCIA in the R frontal area, nausea, fatigue, hot flashes, diaphoresis, some paresthesia in her hands, and dizziness with associated blurred vision and diplopia. Pt denies any fever, chills, erythema of eyes, photophobia, sore throat, CP, SOB, cough, abdominal pain, N/V, dysuria, hematuria, myalgia, edema, rash, congestion , allergies, diarrhea, or body aches. Upon examination, the pt's GARCIA distributon is R frontal, there is no sinus tenderness or nuchal rigidity, and her full neuro exam is nml. The pt will be signed out to Dr. Quan at shift change pending therapeutic intervention with a dx of frontal headache, as the nurse has not yet given medications. Her labs appear negative for inflammatory process, and the pt is nontoxic appearing. She can likely f/u as outpatient. - Diagnoses Provider Diagnoses: Frontal headache Discharge - Sign-Out/Discharge Documenting (check all that apply): Sign-Out Patient Signing out patient TO: Adrian Quan Patient Received Moderate/Deep Sedation with Procedure: No - Discharge Plan Condition: Stable Disposition: HOME Prescriptions: Prochlorperazine TAB* [Compazine Tab*] 10 mg PO Q6H PRN #10 tab PRN Reason: Nausea SUMAtriptan TAB* [Imitrex TAB*] 50 mg PO SEE INSTRUCTIONS PRN #6 tab PRN Reason: Headache Patient Education Materials: Migraine Headache (ED) Referrals: iKara Morin DO [Primary Care Provider] - 2 Days (if not improving) - Billing Disposition and Condition Condition: STABLE Disposition: Home - Attestation Statements Document Initiated by Scribe: Yes Documenting Scribe: Holly Plunkett Provider For Whom Karley is Documenting (Include Credential): Chester Goyal MD. Scribe Attestation: Holly Dubon scribed for Chester Goyal MD. on 10/20/18 at 0101. Scribe Documentation Reviewed: Yes Provider Attestation: The documentation as recorded by the Holly christian accurately reflects the service I personally performed and the decisions made by me, Chester Goyal MD. Status of Scribe Document: Viewed
[2018-10-19 18:10] LABS: ABS Basophils 0.1 10^3/ul (0-0.2); ABS Eosinophils 0.6 10^3/ul (0-0.6); ABS Lymphocytes 3.4 10^3/ul (1.0-4.8); ABS Monocytes 0.6 10^3/ul (0-0.8); ABS Neutrophils 3.8 10^3/ul (1.5-7.7); ABS Nucleated RBC 0 10^3/ul; Eosinophil % 6.7 %; Hematocrit 36 % (33-41); Lymphocyte % 40.4 %; Mean Corpuscular HGB Conc 33 g/dL (31-36); Mean Corpuscular Hemoglobin 28 pg (27-31); Mean Corpuscular Volume 84 fL (80-97); Mean Platelet Volume 9.8 fL (7.4-10.4); Nucleated Red Blood Cells % 0.1; Platelet Count 258 10^3/uL (150-450); Red Blood Count 4.33 10^6 /uL (3.70-4.87); Red Cell Distribution Width 17 % (10.5-15); White Blood Count 8.5 10^3/uL (3.5-10.8)
[2018-10-19 18:30] LABS: ALT 16 U/L (7-52); AST 16 U/L (13-39); Albumin 4.4 g/dL (3.2-5.2); Albumin/Globulin Ratio 1.5 (1-3); Alkaline Phosphatase 72 U/L (34-104); Anion Gap 5 mmol/L (2-11); BUN/Creatinine Ratio 17.4 (8-20); Blood Urea Nitrogen 12 mg/dL (6-24); C Reactive Protein < 1.00 mg/L (<8.01); CO2 Carbon Dioxide 30 mmol/L (22-32); Calcium 9.6 mg/dL (8.6-10.3); Chloride 104 mmol/L (101-111); EGFR African American 119.3 (>60); EGFR Non-African American 98.6 (>60); Glucose 86 mg/dL (70-100); Potassium 3.9 mmol/L (3.5-5.0); Sodium 139 mmol/L (135-145); Total Protein 7.4 g/dL (6.4-8.9)
--- OUTSIDE RECORDS SUMMARY | 2018-10-19 18:49 | XMS REPORT | Continuity of Care Document ---
:1985 External Reference #:[id number] Author Name MarycarmenLucretiaMelani Care Team Providers Name Role Phone [facility] Primary Care Physician Unavailable Payers Date Identification Numbers Payment Provider Subscriber Policy Number: [id number] [employer] Lazaro Gonsalez PayID: [id number] [address] [address] [place] [address] Advance Directives Description No Information Available Problems Date Description Provider Status Onset: 06/12/2018 Weight decreased Jerzy Merlos MD Active Note: First visit [facility] October 27, 2017 - supervised by weight loss clinic and on phentermine until March; Onset: 10/29/2017 Obstructive sleep apnea syndrome Callum Zaman MD Active Note: sent from [facility] for Sleep study 12/02/17 - mild sleep apnea Onset: 06/08/2017 Fibrocystic disease of breast Callum Zaman MD Active Note: had breast Bx 2017 Dr Cm Onset: 07/01/2018 Generalized abdominal pain Callum Zaman MD Active Onset: 07/01/2016 Anxiety disorder Callum Zaman MD Active Onset: 07/01/2010 Serum/plasma protein finding Callum Zaman MD Active Note: all CRPs undetectable through multiple situations - she appears not to make CRP; a normal variant Family History Date Family Member(s) Observation Comments Father Chronic Obstructive Pulmonary Disease (COPD) Father due to COPD () Father Smoker Father Hepatitis C Father Tuberculosis Father Emphysema Father Diabetes Type II Mother Asthma Siblings 3 Sisters, one sister with asthma Social History Type Date Description Comments Sex Unknown Marital Status Lives With Lives With Son Lives With Daughter Occupation Homemaker Tobacco Use Start: Unknown End: Former Cigarette Smoker Smoked 1/2 ppd for Unknown 15 years Smoking Status Reviewed: 09/24/18 Former Cigarette Smoker Smoked 1/2 ppd for 15 years ETOH Use Denies alcohol use Tobacco Use Start: Unknown End: Patient is a former smoker Recreational Drug Use Denies Drug Use Exercise Type/Frequency Exercises sporadically Allergies, Adverse Reactions, Alerts Date Description Reaction Status Severity Comments 06/09/2017 Penicillin Active rash fever Medications Medication Date Status Form Strength Qnty SIG Indications Ordering Provider One-A-Day Womens 09/25/19 Active Tablets 2 tablets Peter T. Formula 19 with iron gerson Zaman MD Sertraline HCL 04/24/20 Active Tablets 100mg 30tab take one Kiara 18 s tablet Senner, daily DO take with 50mg to equal 150mg. Flovent HFA Active Aerosol 220mcg/Ac inhale Unknown 00 t two puffs by mouth twice a day Albuterol Active Nebulizer (2.5mg/3M 1 vial Unknown Sulfate 00 L) 0.083% via nebulizer 4 times daily as needed Levocetirizine Active Tablets 5mg 1 by Unknown HCL 00 mouth every day at night Fluticasone Active Suspension 50mcg/Act 2 squirts Nikolai, Propionate 00 each Jyoti, nostril STAFF MECHANICAL ENGINEER one time per day Proair HFA Active Aerosol 108(90Bas 2 puffs Unknown 00 e) by mouth mcg/Act every 4 hours as needed Famotidine Active Tablets 20mg 60tab 1 by Kiara 00 s mouth Senner, twice a DO day Maalox Advanced Active Chewtabs 1000-60mg 1 tab Unknown Maximum Strength 00 three times a day as needed Fibercon Active Tablets 625mg take 1 Unknown 00 tab once a day (OTC) Zithromax Z-Danny 07/20/19 Hx Tablets 250mg 6tabs Take 2 J45.901 Kiara 19 - tabs on Senner, 07/30/19 day one, DO 19 and then take 1 tab daily Prednisone 07/20/19 Hx Tablets 50mg 5tabs 1 by J45.901 Kiara 19 - mouth Senner, 07/30/19 every day DO 19 Mometasone 07/20/19 Hx Cream 0.1% 15gm apply to R21 Kiara Furoate 19 - affected Senner, 08/22/19 area DO 19 twice a day. Do not use for more than one week! Hyoscyamine 06/25/19 Hx Tablets ER 0.375mg 60tab take 1 Jerzy Sulfate ER 19 - 12HR s tab by MD Gaurang 06/30/19 mouth 19 every 12 hours Ondansetron HCL 06/17/20 Hx Tablets 4mg 30tab take one R10.11 Kiara 18 - s every 6 Senner, 07/03/19 hours as DO 19 needed for nausea Doxycycline Hx Capsules 100mg one Unknown Hyclate 00 - tablet Unknown twice daily for 10 days. Sertraline HCL Hx Tablets 75mg 1 by Unknown 00 - mouth 04/24/20 every day 18 Multi For Her Hx Tablets once a Unknown 00 - day 07/19/19 19 Probiotic Daily Hx Capsules 1 by Unknown 00 - mouth Unknown every day Levocetirizine Hx Tablets 5mg one tab Unknown Dihydrochloride 00 - daily Unknown Meclizine HCL Hx Tablets 12.5mg as Unknown 00 - directed 01/06/20 18 Vitamin D Hx Tablets 1000Unit 1 every Unknown (Cholecalciferol - day ) 07/19/19 19 Vitamin E Hx Capsules 100Unit 1 by Unknown 00 - mouth 06/30/19 every day 19 Naproxen Hx Tablets 250mg take 1 Unknown 00 - tab every 06/30/19 12 hours 19 as needed for pain. Doxycycline Hx Capsules 100mg 1 by Unknown Hyclate 00 - mouth two Unknown times per day for 10 days, ending 01/06/18 Magnesium Oxide Hx Capsules 400mg 2 by Unknown -MG Supplement 00 - mouth 07/19/19 every day 19 Potassium Hx Tablets 99mg 1 tab Unknown 00 - daily 07/19/19 19 Sucralfate Hx Tablets 1gm i tab Unknown 00 - before 06/30/19 meals and 19 at bedtime Omeprazole Hx Capsules 20mg 1 by Unknown 00 - DR mouth 07/19/19 every day 19 Immunizations Description No Information Available Vital Signs Date Vital Result Comment 09/24/2018 2:37pm Height 67 inches 5'7" Weight 160.00 lb Heart Rate 64 /min BP Systolic 95 mmHg BP Diastolic 64 mmHg Respiratory Rate 16 /min Body Temperature 96.9 F O2 % BldC Oximetry 100 % BMI (Body Mass Index) 25.1 kg/m2 08/26/2018 2:16pm Height 67 inches 5'7" Weight 162.38 lb Heart Rate 69 /min BP Systolic Sitting 103 mmHg BP Diastolic Sitting 67 mmHg Body Temperature 98.1 F O2 % BldC Oximetry 100 % at rest on room air BMI (Body Mass Index) 25.4 kg/m2 08/03/2018 3:55pm Height 67 inches 5'7" Weight 161.00 lb Heart Rate 61 /min BP Systolic 107 mmHg BP Diastolic 67 mmHg Respiratory Rate 18 /min Body Temperature 96.5 F O2 % BldC Oximetry 100 % BMI (Body Mass Index) 25.2 kg/m2 07/20/2018 10:50am Weight 160.00 lb Heart Rate 88 /min BP Systolic 104 mmHg BP Diastolic 68 mmHg Respiratory Rate 18 /min Body Temperature 98.4 F Pain Level 0 O2 % BldC Oximetry 98 % 07/01/2018 3:26pm Height 67 inches 5'7" Weight 163.50 lb Heart Rate 74 /min BP Systolic 105 mmHg BP Diastolic 65 mmHg Respiratory Rate 18 /min Body Temperature 98.1 F O2 % BldC Oximetry 97 % BMI (Body Mass Index) 25.6 kg/m2 06/17/2018 11:29am Weight 163.00 lb Heart Rate 72 /min BP Systolic 100 mmHg BP Diastolic 64 mmHg Respiratory Rate 16 /min Body Temperature 99.0 F O2 % BldC Oximetry 98 % 06/12/2018 2:19pm Weight 161.00 lb Heart Rate 72 /min BP Systolic 108 mmHg BP Diastolic 74 mmHg Respiratory Rate 18 /min Body Temperature 99.5 F Pain Level 8 abd O2 % BldC Oximetry 98 % 04/21/2018 2:35pm Height 66 inches 5'6" Weight 170.00 lb Heart Rate 62 /min BP Systolic 118 mmHg BP Diastolic 74 mmHg BP Systolic Sitting 118 mmHg BP Diastolic Sitting 74 mmHg Respiratory Rate 16 /min Body Temperature 98.7 F Pain Level 5 arms O2 % BldC Oximetry 97 % BMI (Body Mass Index) 27.4 kg/m2 02/10/2018 10:33am Heart Rate 84 /min Respiratory Rate 18 /min Body Temperature 98.6 F 02/03/2018 1:11pm Heart Rate 72 /min BP Systolic 124 mmHg BP Diastolic 84 mmHg Respiratory Rate 16 /min Body Temperature 98.7 F 01/06/2018 12:12pm Height 64 inches 5'4" Weight 179.25 lb Heart Rate 64 /min BP Systolic Sitting 122 mmHg Lue reg cuff BP Diastolic Sitting 82 mmHg Lue reg cuff Respiratory Rate 16 /min O2 % BldC Oximetry 98 % On Ra BMI (Body Mass Index) 30.8 kg/m2 01/05/2018 1:46pm Heart Rate 60 /min Respiratory Rate 16 /min Body Temperature 97.9 F 11/24/2017 2:55pm Heart Rate 72 /min BP Systolic Sitting 110 mmHg BP Diastolic Sitting 70 mmHg Respiratory Rate 18 /min Body Temperature 97.9 F 10/16/2017 9:20am Height 64 inches 5'4" Weight 179.00 lb Heart Rate 72 /min BP Systolic Sitting 110 mmHg BP Diastolic Sitting 76 mmHg Respiratory Rate 14 /min O2 % BldC Oximetry 99 % BMI (Body Mass Index) 30.7 kg/m2 Neck Circumference in inches 14 10/13/2017 2:01pm Heart Rate 90 /min BP Systolic Sitting 98 mmHg BP Diastolic Sitting 62 mmHg Respiratory Rate 16 /min Body Temperature 98.5 F 09/01/2017 1:50pm Heart Rate 78 /min BP Systolic Sitting 110 mmHg BP Diastolic Sitting 66 mmHg Respiratory Rate 16 /min Body Temperature 98.4 F 07/21/2017 1:31pm Heart Rate 84 /min Respiratory Rate 16 /min Body Temperature 98.5 F 06/09/2017 2:47pm Height 65 inches 5'5" Heart Rate 72 /min BP Systolic Sitting 102 mmHg BP Diastolic Sitting 68 mmHg Respiratory Rate 16 /min Body Temperature 99.3 F Results Test Date Facility Test Result H/L Range Note CBC No Diff 09/22/2018 [facility] White Blood 6.4 10^3/uL N 3.5-10.[address] [place] [address] [phone] Red Blood Count 4.21 10^6/uL N 3.70-4.87 Hemoglobin 11.4 g/dL Low 12.0-16.0 Hematocrit 35 % N 33-41 Mean Corpuscular Volume 83 fL N 80-97 Mean Corpuscular Hemoglobin 27 pg N 27-31 Mean Corpuscular HGB Conc 33 g/dL N 31-36 Red Cell Distribution Width 17 % High 10.5-15 Platelet Count 232 10^3/uL N 150-450 Mean Platelet Volume 10.5 fL High 7.4-10.4 Laboratory test 09/22/2018 [facility] C Reactive < 1.00 mg/L N <8.[address] [place] [address] [phone] Ferritin 5.6 ng/mL Low 11-307 Iron & Iron Binding 08/26/2018 [facility] Iron 45 g/dL Low 50-[address] [place] [address] [phone] Unsaturated Iron Binding < 406 g/dL Total Iron Binding Capacity 421 g/dL N 250-450 Transferrin 301 mg/dL N 203-362 % Iron Saturation 11 % Low 15-55 CBC Auto Diff 08/26/2018 [facility] White Blood 10.2 10^3/uL N 3.5-10.[address] [place] [address] [phone] Red Blood Count 4.12 10^6/uL N 4.00-5.40 Hemoglobin 11.3 g/dL Low 12.0-16.0 Hematocrit 35 % N 35-47 Mean Corpuscular Volume 84 fL N 80-97 Mean Corpuscular Hemoglobin 27 pg N 27-31 Mean Corpuscular HGB Conc 33 g/dL N 31-36 Red Cell Distribution Width 16 % High 10.5-15 Platelet Count 278 10^3/uL N 150-450 Mean Platelet Volume 9.9 fL N 7.4-10.4 Abs Neutrophils 5.7 10^3/uL N 1.5-7.7 Abs Lymphocytes 3.4 10^3/uL N 1.0-4.8 Abs Monocytes 0.8 10^3/uL N 0-0.8 Abs Eosinophils 0.3 10^3/uL N 0-0.6 Abs Basophils 0 10^3/uL N 0-0.2 Abs Nucleated RBC 0 10^3/uL Granulocyte % 56.2 % Lymphocyte % 33.0 % Monocyte % 7.4 % Eosinophil % 3.0 % Basophil % 0.4 % Nucleated Red Blood Cells % 0 Laboratory test 08/26/2018 [facility] Ferritin 6.3 ng/mL Low 11-[address] [place] [address] [phone] Laboratory test 07/03/2018 [facility] Clotest SEE RESULT [address] [place] [address] [phone] CBC Auto Diff 06/12/2018 [facility] White Blood 10.6 N 3.5- 10.[address] Count 10^3/[place] [address] [phone] Red Blood Count 3.68 10^6/uL Low 4.00-5.40 Hemoglobin 10.9 g/dL Low 12.0-16.0 Hematocrit 33 % Low 35-47 Mean Corpuscular Volume 88 fL N 80-97 Mean Corpuscular Hemoglobin 30 pg N 27-31 Mean Corpuscular HGB Conc 33 g/dL N 31-36 Red Cell Distribution Width 14 % N 10.5-15 Platelet Count 308 10^3/uL N 150-450 Mean Platelet Volume 8.9 fL N 7.4-10.4 Abs Neutrophils 5.5 10^3/uL N 1.5-7.7 Abs Lymphocytes 3.9 10^3/uL N 1.0-4.8 Abs Monocytes 0.7 10^3/uL N 0-0.8 Abs Eosinophils 0.4 10^3/uL N 0-0.6 Abs Basophils 0.1 10^3/uL N 0-0.2 Abs Nucleated RBC 0 10^3/uL Granulocyte % 52.1 % Lymphocyte % 36.6 % Monocyte % 6.7 % Eosinophil % 3.9 % Basophil % 0.7 % Nucleated Red Blood Cells % 0 Comp Metabolic Panel 06/12/2018 [facility] Sodium 136 mmol/L N 135-[address] [place] [address] [phone] Potassium 3.9 mmol/L N 3.5-5.0 Chloride 107 mmol/L N 101-111 Co2 Carbon Dioxide 26 mmol/L N 22-32 Anion Gap 3 mmol/L N 2-11 Glucose 92 mg/dL N 70-100 Blood Urea Nitrogen 12 mg/dL N 6-24 Creatinine 0.66 mg/dL N 0.51-0.95 BUN/Creatinine Ratio 18.2 N 8-20 Calcium 9.1 mg/dL N 8.6-10.3 Total Protein 6.9 g/dL N 6.4-8.9 Albumin 4.1 g/dL N 3.2-5.2 Globulin 2.8 g/dL N 2-4 Albumin/Globulin Ratio 1.5 N 1-3 Total Bilirubin 0.30 mg/dL N 0.2-1.0 Alkaline Phosphatase 55 U/L N 34-104 Alt 15 U/L N 7-52 Ast 14 U/L N 13-39 Egfr Non- 104.5 >60 Egfr 126.4 >60 2 Laboratory test finding 06/12/2018 [facility] Lipase 17 U/L N 11.0-82.0 [address] [place] [address] [phone] C Reactive Protein < 1.00 mg/L N <8.01 Lactic Acid 0.6 mmol/L N 0.5-2.0 3 Comp Metabolic Panel 06/09/2018 [facility] Sodium 137 mmol/L N 135-145 [address] [place] [address] [phone] Potassium 3.9 mmol/L N 3.5-5.0 Chloride 105 mmol/L N 101-111 Co2 Carbon Dioxide 27 mmol/L N 22-32 Anion Gap 5 mmol/L N 2-11 Glucose 94 mg/dL N 70-100 Blood Urea Nitrogen 12 mg/dL N 6-24 Creatinine 0.62 mg/dL N 0.51-0.95 BUN/Creatinine Ratio 19.4 N 8-20 Calcium 9.3 mg/dL N 8.6-10.3 Total Protein 7.3 g/dL N 6.4-8.9 Albumin 4.3 g/dL N 3.2-5.2 Globulin 3.0 g/dL N 2-4 Albumin/Globulin Ratio 1.4 N 1-3 Total Bilirubin 0.20 mg/dL N 0.2-1.0 Alkaline Phosphatase 57 U/L N 34-104 Alt 20 U/L N 7-52 Ast 18 U/L N 13-39 Egfr Non- 112.3 >60 Egfr 135.9 >60 4 Urinalysis Profile 06/09/2018 [facility] Urine Color Yellow [address] [place] [address] [phone] Urine Appearance Clear Urine Specific Avalon 1.014 N 1.010-1.030 Urine pH 7.0 N 5-9 Urine Urobilinogen Negative Negative Urine Ketones Negative Negative Urine Protein Negative Negative Urine Leukocytes Negative Negative Urine Blood Negative Negative Urine Nitrite Negative Negative Urine Bilirubin Negative Negative Urine Glucose Negative Negative Laboratory test 06/09/2018 [facility] Lactic Acid 0.6 mmol/L N 0.5-2.[address] [place] [address] [phone] CBC Auto Diff 06/09/2018 [facility] White Blood 10.3 10^3/uL N 3.5-10.[address] [place] [address] [phone] Red Blood Count 3.70 10^6/uL Low 4.00-5.40 Hemoglobin 10.9 g/dL Low 12.0-16.0 Hematocrit 33 % Low 35-47 Mean Corpuscular Volume 88 fL N 80-97 Mean Corpuscular Hemoglobin 30 pg N 27-31 Mean Corpuscular HGB Conc 34 g/dL N 31-36 Red Cell Distribution Width 14 % N 10.5-15 Platelet Count 299 10^3/uL N 150-450 Mean Platelet Volume 8.6 fL N 7.4-10.4 Abs Neutrophils 5.6 10^3/uL N 1.5-7.7 Abs Lymphocytes 3.5 10^3/uL N 1.0-4.8 Abs Monocytes 0.8 10^3/uL N 0-0.8 Abs Eosinophils 0.4 10^3/uL N 0-0.6 Abs Basophils 0.1 10^3/uL N 0-0.2 Abs Nucleated RBC 0 10^3/uL Granulocyte % 53.7 % Lymphocyte % 34.2 % Monocyte % 7.5 % Eosinophil % 3.7 % Basophil % 0.9 % Nucleated Red Blood Cells % 0 Laboratory test finding 06/09/2018 [facility] Lipase 26 U/L N 11.0-82.0 [address] [place] [address] [phone] C Reactive Protein < 1.00 mg/L N <8.01 HCG < 0.60 mIU/mL 6 Laboratory test 04/21/2018 [facility] Magnesium 1.9 mg/dL N 1.9-2.7 finding [address] [place] [address] [phone] Basic Metabolic 04/21/2018 [facility] Sodium 139 mmol/L N 135- 145 Panel [address] [place] [address] [phone] Potassium 3.8 mmol/L N 3.5-5.0 Chloride 107 mmol/L N 101-111 Co2 Carbon Dioxide 28 mmol/L N 22-32 Anion Gap 4 mmol/L N 2-11 Glucose 76 mg/dL N 70-100 Blood Urea Nitrogen 12 mg/dL N 6-24 Creatinine 0.61 mg/dL N 0.51-0.95 BUN/Creatinine Ratio 19.7 N 8-20 Calcium 8.9 mg/dL N 8.6-10.3 Egfr Non- 114.4 >60 Egfr 138.4 >60 7 Laboratory test 04/21/2018 [facility] TSH (Thyroid 2.52 mcIU/mL N 0.34-5.[address] [place]) [place] [address] [phone] Hemoglobin A1c (Glyco HGB) 5.4 % N 4.0-5.6 8 Laboratory test 02/03/2018 [facility] Surgical SEE RESULT [address] [place] [address] [phone] Laboratory test 07/21/2017 [facility] Surgical <pending> 10 finding [facility] [place] [address] [phone] Cytology Non-Traffic Officer SEE RESULT BELOW 11 1 SEE RESULT BELOW Name: JOSE MIGUEL GONSALEZ : [address]: Callum Zaman MD Acct: [id number] Unit: [id number] AGE: 32 Location: ENDO Re07/03/18 SEX: F Status: REG REF SPEC: [id number] MARIAM: 07/03/18-1549 [facility] DR: Callum Zaman MD REQ: [id number] RECD: 07/03/18 STATUS: RICHARD SHETH DR: Kiara Morin DO _ SOURCE: GAS ANTRUM SPDESC: ORDERED: Clotest Procedure Result Reported Site Clotest Final 07/04/18- 736 ML Clotest Negative * ML - Main Lab . END OF REPORT DEPARTMENT OF PATHOLOGY, [address] [place] [id number] William Fermin M.D. Director [facility] # [id number] 2 Because ethnic data is not always readily available, this report includes an eGFR for both -Americans and non- Americans. The National Kidney Disease Education Program (NKDEP) does not endorse the use of the MDRD equation for patients that are not between the ages of 18 and 70, are , have extremes of body size, muscle mass, or nutritional status, or are non- or non-. According to the National Kidney Foundation, irrespective of diagnosis, the stage of the disease is based on the level of kidney function: Stage Description GFR(mL/min/1.73 m(2)) 1 Kidney damage with normal or decreased GFR 90 2 Kidney damage with mild decrease in GFR 60-89 3 Moderate decrease in GFR 30-59 4 Severe decrease in GFR 15-29 5 Kidney failure <15 (or dialysis) 3 [facility] Severe Sepsis and Septic Shock Management Bundle Measure requires all lactic acids initially measuring >2.0 mmol/L be repeated. 4 Because ethnic data is not always readily available, this report includes an eGFR for both -Americans and non- Americans. The National Kidney Disease Education Program (NKDEP) does not endorse the use of the MDRD equation for patients that are not between the ages of 18 and 70, are , have extremes of body size, muscle mass, or nutritional status, or are non- or non-. According to the National Kidney Foundation, irrespective of diagnosis, the stage of the disease is based on the level of kidney function: Stage Description GFR(mL/min/1.73 m(2)) 1 Kidney damage with normal or decreased GFR 90 2 Kidney damage with mild decrease in GFR 60-89 3 Moderate decrease in GFR 30-59 4 Severe decrease in GFR 15-29 5 Kidney failure <15 (or dialysis) 5 [facility] Severe Sepsis and Septic Shock Management Bundle Measure requires all lactic acids initially measuring >2.0 mmol/L be repeated. 6 <5.0 Negative 5.0 - 25.0 Indeterminate (Repeat testing recommended after 72 hours) >25.0 Positive Perimenopausal women can display HCG levels of up to 20 mIU/mL 7 Because ethnic data is not always readily available, this report includes an eGFR for both -Americans and non- Americans. The National Kidney Disease Education Program (NKDEP) does not endorse the use of the MDRD equation for patients that are not between the ages of 18 and 70, are , have extremes of body size, muscle mass, or nutritional status, or are non- or non-. According to the National Kidney Foundation, irrespective of diagnosis, the stage of the disease is based on the level of kidney function: Stage Description GFR(mL/min/1.73 m(2)) 1 Kidney damage with normal or decreased GFR 90 2 Kidney damage with mild decrease in GFR 60-89 3 Moderate decrease in GFR 30-59 4 Severe decrease in GFR 15-29 5 Kidney failure <15 (or dialysis) 8 Therapeutic target for the treatment of diabetes mellitus patients is <7% HBA1C, and in selective patients <6.0%. Please refer to [place] [employer] diabetic care guidelines for further information. 9 SEE RESULT BELOW Name: JOSE MIGUEL GONSALEZ : [address]: Christy Cm MD Acct: [id number] Unit: [id number] AGE: 32 Location: [facility] Re02/03/18 SEX: F Status: REG REF SPEC: [id number] MARIAM: 02/03/18-645 [facility] DR: Christy Cm MD REQ: [id number] RECD: 02/03/18 STATUS: SOUT _ ORDERED: LEVEL 5 COMMENTS: [id number] FINAL DIAGNOSIS Breast, left, lumpectomy: -- Benign breast tissue with non-proliferative fibrocystic change. -- No evidence of invasive or in situ carcinoma. CLINICAL HISTORY No history given GROSS DESCRIPTION The specimen is received in formalin labeled, Left Breast Mass, and consists of a 6.0 x 4.9 x 2.5 cm mcnamara-white to yellow irregular unoriented portion of fibrofatty soft tissue. There is a 3.3 by up to 3.1 x 2.0 cm lópez-white to brown wrinkled ill-defined area of fibrous tissue which abuts the inked margin. The remaining cut surface consists predominantly of yellow lobulated adipose tissue with scant interspersed mcnamara-white fibrous tissue. The specimen is inked, serially sectioned and electroplating sales representative sections are submitted in cassettes A through I. Signed by and Reported on: Adriana Jiménez MD 02/06/18 1407 END OF REPORT DEPARTMENT OF PATHOLOGY, [address] [place] [address] William Fermin M.D. Director [facility] # [id number] 11 SEE RESULT BELOW Name: JOSE MIGUEL GONSALEZ: [address]: Christy Cm MD Acct: [id number] Unit: [id number] AGE: 32 Location: [facility] Re07/21/17 SEX: F Status: REG REF SPEC: [id number] MARIAM: 07/21/17-[address]: Christy Cm MD REQ: [id number] RECD: 07/21/17-170 STATUS: SOUT _ ORDERED: FNA [facility], LEVEL 4 COMMENTS: [id number] FINAL DIAGNOSIS Breast, left, fine needle aspiration: [...] performed at Main Lab DEPARTMENT OF PATHOLOGY, [address] [place] [address] William Fermin M.D. Director [facility] # [id number] Procedures Date Code Description Status 07/03/2018 51352 Endoscopy Upper GI Biopsy Completed 02/03/2018 81481 Excise Breast Lesion Completed 02/02/2018 51651 Destruction Of Benign Lesions Any Method 1-14 lesions Completed 12/02/2017 65739 Polysomnography Sleep Staging 4+ Parameters Completed Encounters Type Date Location Provider Dx Diagnosis Office Visit 08/26/2018 [facility] Gastroenterology Callum Estrada D64.9 Anemia, 2:15p MD Austyn unspecified R10.30 Lower abdominal pain, unspecified K59.00 Constipation, unspecified Office 08/03/2018 [facility] Gastroenterology Callum Estrada K59.00 Constipation, Visit 4:00p MD Austyn unspecified R10.30 Lower abdominal pain, unspecified K29.70 Gastritis, unspecified, without bleeding Office Visit 07/20/2018 [facility]ara J45.901 Unspecified asthma 10:40a [facility] DO Patience with (acute) exacerbation R21 Rash and other nonspecific skin eruption G47.33 Obstructive sleep apnea (adult) (pediatric) D64.9 Anemia, unspecified Office Visit 07/01/2018 [facility] Gastroenterology Callum Estrada D64.9 Anemia, 3:30p MD Austyn unspecified R10.816 Epigastric abdominal tenderness G47.33 Obstructive sleep apnea (adult) (pediatric) K58.1 Irritable bowel syndrome with constipation F41.9 Anxiety disorder, unspecified Office Visit 06/17/2018 11:00a [facility]ara R10.11 Right upper [facility] DO Patience quadrant pain R11.0 Nausea Office Visit 06/12/2018 2:00p [facility] Jerzy Merlos MD R10.32 Left lower [facility] quadrant pain R10.816 Epigastric abdominal tenderness R11.0 Nausea R63.4 Abnormal weight loss Office Visit 04/21/2018 2:00p [facility] E83.42 Hypomagnesemia [facility] DO Patience E87.6 Hypokalemia M62.81 Muscle weakness (generalized) G47.33 Obstructive sleep apnea (adult) (pediatric) Office Visit 02/02/2018 8:50a [facility] Dermatology Joshua Hinkle, D23.71 Oth benign MD neoplasm skin/ right lower limb, including hip B07.8 Other viral warts Z78.9 Other specified health status R58 Hemorrhage, not elsewhere classified L53.8 Other specified erythematous conditions Office Visit 01/06/2018 Pulmonology And Tracy G47.33 Obstructive sleep 1:00p [facility], RN, apnea (adult) Greg STAFF MECHANICAL ENGINEER-BC (pediatric) G47.14 Hypersomnia due to medical condition Office Visit 01/05/2018 1:30p Surgical Christy Familia N64.59 Other [facility] Greg Cm MD symptoms in breast Office Visit 11/24/2017 3:00p Surgical Christy Familia N63.20 Unspecified [facility] in the left breast, unspecified quadrant Office Visit 10/16/2017 9:30a Pulmonology And Anushka R06.83 [facility] R53.83 Other fatigue Office Visit 10/13/2017 2:00p Surgical Christy Barbosa N63.20 [facility]specified [facility] in the left breast, unspecified quadrant N63.10 Unspecified lump in the right breast, unspecified quadrant Office Visit 09/01/2017 2:00p Surgical Christy Barbosa N64.59 Other signs and [facility] MD symptoms in breast Office Visit 07/21/2017 1:30p Surgical Christy Barbosa N64.4 [facility] MD N63.20 Unspecified lump in the left breast, unspecified quadrant Office Visit 06/09/2017 3:00p [facility] N64.4 [facility] N64.59 Other signs and symptoms in breast Plan of Treatment Future Appointment(s):11/02/2018 4:15 pm - Callum Zaman MD at [facility] Gastroenterology
[2018-10-19 19:20] LABS: Erythrocyte Sed Rate 5 mm/Hr (0-19)
[2018-10-19 20:41] LABS: Urine Appearance Clear; Urine Bilirubin Negative (Negative); Urine Blood Negative (Negative); Urine Color Yellow; Urine Glucose Negative (Negative); Urine Ketones Negative (Negative); Urine Nitrite Negative (Negative); Urine Protein Negative (Negative); Urine Urobilinogen Negative (Negative)
[2018-10-19] MEDS ORDERED: Ketorolac INJ* 30 MG/ML 1 ML VIAL IV PUSH ONE (21:01)
[2018-10-19] MEDS ORDERED: diPHENhydraMINE PO* 50 MG PO ONE (21:01)
[2018-10-19] MEDS ORDERED: Prochlorperazine TAB* 10 MG PO ONE (21:02)
[2018-10-19 21:49] VITALS: BP 102/81
== END 2018-10-19 21:47 | disposition home or self-care (01) ==
LOC: ED 17:37
DX: R51 Headache (principal); Z87.891 Personal history of nicotine dependence; J45.909 Unspecified asthma, uncomplicated; R61 Generalized hyperhidrosis; R20.2 Paresthesia of skin; R42 Dizziness and giddiness; H53.8 Other visual disturbances; H53.2 Diplopia; R11.0 Nausea
CPT/HCPCS: 36415; 70450; 80053; 81003; 83605; 85025; 85652; 85730; 86140; 96361; 96365; 96366; 96367; 99283; A9270-GY; J1100; J2765; Q0164

== ENCOUNTER 2019-05-26 08:18 | Observation (INO) | payer BC ==
[~2019-05-26 08:18] MED LIST: Buffered Lidocaine 1% SYRIN* 1 ML/SYRINGE INTRADERM ONE; GENTAMICIN ADULT IVPB ONE; Lactated Ringers 1000 ML Bag* 1,000 ML IV SCH; NS 0.9% IVPB ONE
[2019-05-26] MEDS ORDERED: Clindamycin 900 MG/D5W BAG(*) 900 MG/50 ML BAG IVPB ONE (08:43)
[2019-05-26] MEDS ORDERED: Bupivacaine 0.5% W/EPI SDV* 10 ML VIAL INJ ONE (10:30)
[2019-05-26] MEDS ORDERED: Levalbuterol 0.63MG/3ML NEB* UNIT OF USE INH ONE ×2 (10:30→10:31)
[2019-05-26] MEDS ORDERED: Bupivacaine 0.5% W/EPI SDV* 30 ML VIAL ONE (10:36)
[2019-05-26] MEDS ORDERED: Propofol* 10 MG/ML 20 ML BTL ONE (10:37)
[2019-05-26] MEDS ORDERED: Rocuronium* 10 MG/ML VIAL ONE ×2 (10:37→12:08)
[2019-05-26] MEDS ORDERED: fentaNYL* 50 MCG/ML 2 ML VIAL (100 MCG VIAL) ONE ×2 (10:37→13:22)
[2019-05-26] MEDS ORDERED: Midazolam* 1 MG/ML 5 ML VIAL (5 MG) ONE (10:37)
[2019-05-26] MEDS ORDERED: Lidocaine 2% PF * 5 ML VIAL ONE (10:40)
[2019-05-26] MEDS ORDERED: Dexamethasone IV* 4 MG/ML 1 ML (4 MG) ONE (11:12)
[2019-05-26] MEDS ORDERED: HYDROmorphone INJ1* 1 MG/ML SYRINGE IV PRN (12:22)
[2019-05-26] MEDS ORDERED: oxyCODONE/Acetamin 5/325 MG* TAB PO PRN ×2 (12:22→12:59)
[2019-05-26] MEDS ORDERED: Ondansetron INJ* 2 MG/ML VIAL IV PRN (12:22)
[2019-05-26] MEDS ORDERED: Naloxone* 0.4 MG/ML 1 ML VIAL IV PRN (12:22)
[2019-05-26] MEDS ORDERED: fentaNYL* 50 MCG/ML 2 ML VIAL (100 MCG VIAL) IV PRN (12:22)
[2019-05-26] MEDS ORDERED: DiMENhydriNATE IV* 50 MG/ML VIAL IV PUSH PRN (12:22)
[2019-05-26] MEDS ORDERED: Ketorolac INJ* 30 MG/ML 1 ML VIAL ONE (12:38)
[2019-05-26] MEDS ORDERED: Ondansetron INJ* 2 MG/ML VIAL ONE (12:38)
[2019-05-26] MEDS ORDERED: Sugammadex * 200 MG/2 ML VIAL IV PUSH ONE (12:50)
[2019-05-26] MEDS: Lactated Ringers 1000 ML Bag* 1,000 ML IV SCH ×2 (14:19→22:13)
[2019-05-26] MEDS: Ibuprofen TAB* 600 MG PO PRN (15:34)
[2019-05-27 06:44] LABS: ABS Eosinophils 0.1 10^3/ul (0-0.6); ABS Lymphocytes 2.6 10^3/ul (1.0-4.8); ABS Monocytes 0.8 10^3/ul (0-0.8); ABS Neutrophils 7.8 10^3/ul (1.5-7.7); Eosinophil % 0.7 %; Hematocrit 31 % (35-47); Hemoglobin 10.5 g/dL (12.0-16.0); Lymphocyte % 23.1 %; Mean Corpuscular HGB Conc 35 g/dL (31-36); Mean Corpuscular Hemoglobin 30 pg (27-31); Mean Corpuscular Volume 87 fL (80-97); Mean Platelet Volume 9.9 fL (7.4-10.4); Platelet Count 165 10^3/uL (150-450); Red Blood Count 3.52 10^6 /uL (3.70-4.87); Red Cell Distribution Width 14 % (10-15); White Blood Count 11.3 10^3/uL (3.5-10.8)
[2019-05-27] MEDS: Ibuprofen TAB* 600 MG PO PRN ×2 (07:37→13:54)
[2019-05-27] MEDS ORDERED: Simethicone TAB* 80 MG TAB.CHEW PO PRN (08:28)
[2019-05-27] MEDS ORDERED: Docusate CAP* 100 MG PO PRN (08:28)
[2019-05-27] MEDS ORDERED: Bisacodyl EC TAB* 5 MG PO ONE (08:29)
[2019-05-27 11:11] VITALS: BP 105/58
--- NOTE | 2019-05-27 13:24 | SURGPN ---
Subjective - Introduction -: 33 y/o lady with chronic pelvic pain, severe dysmenorrhea and menorrhagia. Admitted on: [05/26/19] Patient's surgical date: 05/26/19 Procedure completed: Laparoscoic supracervical hysterectomy S. Patient is tolerating pain well with PO meds. She is tolerating a regular diety, passing flatus, voiding and ambulating with no difficulty. She denies chest pain, SOB, N/V. O. Vital Signs Temp Pulse Resp BP Pulse Ox 97.8 F 66 16 105/58 99 05/27/19 11:10 05/27/19 11:10 05/27/19 11:10 05/27/19 11:10 05/27/19 11:10 Laboratory Last Values WBC 11.3 10^3/uL (3.5-10.8) H 05/27/19 05:31 RBC 3.52 10^6 /uL (3.70-4.87) L 05/27/19 05:31 Hgb 10.5 g/dL (12.0-16.0) L 05/27/19 05:31 Hct 31 % (35-47) L 05/27/19 05:31 MCV 87 fL (80-97) 05/27/19 05:31 MCH 30 pg (27-31) 05/27/19 05:31 MCHC 35 g/dL (31-36) 05/27/19 05:31 RDW 14 % (10-15) 05/27/19 05:31 Plt Count 165 10^3/uL (150-450) 05/27/19 05:31 MPV 9.9 fL (7.4-10.4) 05/27/19 05:31 Neut % (Auto) 69.1 % 05/27/19 05:31 Lymph % (Auto) 23.1 % 05/27/19 05:31 Foard % (Auto) 6.7 % 05/27/19 05:31 Eos % (Auto) 0.7 % 05/27/19 05:31 Baso % (Auto) 0.4 % 05/27/19 05:31 Absolute Neuts (auto) 7.8 10^3/ul (1.5-7.7) H 05/27/19 05:31 Absolute Lymphs (auto) 2.6 10^3/ul (1.0-4.8) 05/27/19 05:31 Absolute Monos (auto) 0.8 10^3/ul (0-0.8) 05/27/19 05:31 Absolute Eos (auto) 0.1 10^3/ul (0-0.6) 05/27/19 05:31 Absolute Basos (auto) 0.0 10^3/ul (0-0.2) 05/27/19 05:31 Absolute Nucleated RBC 0.0 10^3/ul 05/27/19 05:31 Nucleated RBC % 0.0 05/27/19 05:31 P.E. Lungs CTA b/l, no CVA tenderness CV RRR no abnormal heart sounds Abd. Soft, NT, ND, NABS. Incisions are clean dry, intact with no erythema or induration noted. - Medications -: Active Medications Generic Name Dose Route Start Last Admin Trade Name Freq PRN Reason Stop Dose Admin Docusate Sodium 100 mg 05/27/19 08:28 Colace Cap* PO BID PRN CONSTIPATION Lactated Ringer's 1,000 mls @ 125 mls/hr 05/26/19 13:00 05/26/19 22:13 Lactated Ringers 1000 Ml Bag* IV 125 mls/hr PER RATE SUMI Administration Ibuprofen 600 mg 05/26/19 12:59 05/27/19 07:37 Motrin Tab* PO 600 mg Q6H PRN Administration PAIN - MILD Oxycodone/Acetaminophen 2 tab 05/26/19 12:59 05/26/19 20:49 Percocet 5/325 Tab* PO 1 tab Q4H PRN Administration PAIN - MODERATE TO SEVERE Simethicone 80 mg 05/27/19 08:28 Mylicon Tab* PO Q6H PRN CONSTIPATION - Comments Comments: I/P Post op day #1 Patient is stable for discharge. Discharge instructions reviewed with patient and spouse. Objective - Intake and Output -: Intake & Output 05/25/19 05/26/19 05/27/19 05/28/19 06:59 06:59 06:59 06:59 Intake Total 5003 Output Total 2600 1400 Balance 2403 -1400 Weight 172 lb 9.6 oz Intake: IV Fluids 3543 LR 3543 Oral 1460 Output: Urine 1000 Zhang 2600 400 Other: Estimated Void Small # Voids 1 ADLs: Meal Record Start: 05/26/19 14: 04 Freq: Status: Active Protocol: Created 05/26/19 14:04 [id number] (Rec: 05/26/19 14:04 [id number] SSU-M13) Document 05/27/19 09:28 [id number] (Rec: 05/27/19 09:28 [id number] SSU-M21) Intake and Output Start: 05/26/19 14: 04 Freq: DAILY@0600,1400,2200 Status: Active Protocol: Created 05/26/19 14:04 [id number] (Rec: 05/26/19 14:04 [id number] SSU-M13) Document 05/26/19 20:15 [id number] (Rec: 05/26/19 20:24 [id number] SSU-M18) Document 05/26/19 22:07 [id number] (Rec: 05/26/19 22:20 [id number] SSU-M18) Document 05/27/19 04:20 [id number] (Rec: 05/27/19 04:21 [id number] SSU-C09) Document 05/27/19 06:31 [id number] (Rec: 05/27/19 06:31 [id number] SSU-C09) Document 05/27/19 08:30 [id number] (Rec: 05/27/19 09:03 [id number] SSU-M21) Document 05/27/19 09:00 [id number] (Rec: 05/27/19 09:05 [id number] SSU-M21) Document 05/27/19 13:08 [id number] (Rec: 05/27/19 13:08 [id number] SSU-C12)
--- NOTE | 2019-05-29 02:16 | DS ---
DISCHARGE SUMMARY: DATE OF ADMISSION: 05/26/19 DATE OF DISCHARGE: 05/27/19 DIAGNOSES ON ADMISSION: 1. Abnormal uterine bleeding. 2. Menorrhagia. 3. Chronic pelvic pain. 4. Severe dysmenorrhea. PROCEDURE ON ADMISSION: Laparoscopic supracervical hysterectomy. HOSPITAL COURSE: The patient was admitted to the surgical stay unit after her procedure for observat ion over a 24-hour period. On 05/27/19, the patient's vital signs were stable. She was afebrile. S he was ambulating, voiding without difficulty, tolerating a regular diet, and pain control was tolera cheryl with p.o. meds. She had a complete blood cell count, which was consistent with a hemoglobin/delio tocrit of 10.5/31. On the date of 05/27/19, the patient was deemed stable for discharge. She was th erefore discharged home with instructions for followup in my office 1 week after her surgery. Please refer to the patient's chart for a complete history and physical as well as her laboratory fin dings. At the time of discharge, her pathology report was pending. [id number]/[facility] #: [id number]
--- NOTE | 2019-06-03 10:39 | OP ---
OPERATIVE REPORT: DATE OF OPERATION: 05/26/19 DATE OF : 87 SURGEON: Deon Simpson MD. SHANK SCOURER: Dr. Nieves. ANESTHESIA: General anesthetic with endotracheal intubation. PRE-OP DIAGNOSES: Chronic pelvic pain, abnormal uterine bleeding, and severe dysmenorrhea. POST-OP DIAGNOSES: Chronic pelvic pain, abnormal uterine bleeding, and severe dysmenorrhea. OPERATIVE PROCEDURE: Laparoscopic supracervical hysterectomy. ESTIMATED BLOOD LOSS: Less than 10 cc. SPECIMEN SENT TO PATHOLOGY: Morcellated uterus. IV FLUIDS: She received 1700 cc of IV crystalloid fluid. URINE OUTPUT: Clear. FINDINGS: Laparoscopically, the patient was noted to have an enlarged globular uterus with normal ov earnest bilaterally and evidence of a prior tubal ligation. Normal bowel and bladder, and there were no complications. DESCRIPTION OF PROCEDURE: The patient was taken to the operating room where she was identified. She was placed on the operating table where a general anesthetic with endotracheal intubation was obtain ed without difficulty. She was then placed in the dorsal lithotomy position, prepped and draped in n ormal sterile fashion. Attention was then brought on to the patient's perineum where the bladder was drained of clear urine using a Zhang catheter. A speculum was inserted into the patient's vagina. T he cervix was identified, grasped with a single-tooth tenaculum, and through the cervix, a ClearView uterine manipulator was introduced. The balloon in the manipulator was insufflated with 3 cc of romaine l saline, and the single-tooth tenaculum and the speculum were then removed. Attention was then brou ght on to the patient's abdomen where a 2-cm vertical infraumbilical skin incision was made with a kn elinor, carried through to the underlying layer of fascia. The fascia was then grasped with Junior clamp s, brought up to the incision, incised medially with the knife. Entry into the the patient's abdomin al cavity was confirmed using a Dolly clamp. The Junior clamps were then replaced with 0 Polysorb black tures in the umbilical incision. The fascia was extended superoinferiorly to about a length of 4 cm. Through this incision, a single-site operative laparoscopic Gel port was introduced. A trocar was introduced through the Gel port and a 30-degree scope was introduced into the patient's abdomen. The abdomen was then insufflated with CO2 gas. The patient was then placed in the Trendelenburg positio n. Two other trocars were introduced at the left and right upper quadrants of the patient's abdomen under direct visualization. At this point, we then proceeded to move the bowel away from the pelvis to assure clear view of the operative site. The patient's anatomy was identified and it was noted as above. We then proceeded with our supracervical hysterectomy. The patient's round ligaments were i dentified bilaterally. They were grasped with LigaSure, coagulated, and transected. The uteroovaria n ligaments were also grasped bilaterally with LigaSure, coagulated, and transected. A window in the anterior leaf of the broad ligament was then opened using the LigaSure. The anterior leaf of the br oad ligament using both sharp and blunt dissection was then opened inferiorly towards the bladder. T he bladder flap was then created using LigaSure. The bladder was then mobilized away from the lower u terine segment. The uterine arteries were then identified bilaterally. They were grasped with the L igaSure at the lower uterine segment and coagulated. They were also grasped at the cervicouterine ju nction, coagulated and transected. There was no bleeding at this point. The uterus was noted to be blanching because the blood supply had been cut off. I then introduced a SupraLoop through the troca r at the patient's right upper quadrant. The SupraLoop was then wrapped around the junction of the c ervix and the lower uterine segment. It was set at 110 Pure-Cut setting. At this point, the uterus was then decapitated from the cervix. The uterus was then mobilized away from the cervix. The cervi x was noted to be completely hemostatic at this point. The SupraLoop was removed from the patient's a bdomen. An Endobag was introduced into the patient's abdomen through the umbilicus. The uterus was then placed in the Endobag. The Endobag was then brought out through the umbilical incision and then I proceeded to morcellate the uterus inside the bag. Once the entire specimen was morcellated and r emoved from the patient's abdomen, the bag was removed. It was noted to be intact. We then re-insuf flated the patient's abdomen. A second look of the operative site revealed completely hemostatic ped icles. At this point, we irrigated the patient's pelvis with normal saline. The normal saline solut ion was then removed. The pedicles were noted to be hemostatic. The CO2 gas was removed from the pa tient's abdomen as well as all the trocars and GelPOINT single- site applicator was also removed. At the umbilical incision, the fascia was closed using 0 Polysorb suture in a running fashion, and then all the operative sites in the right and left upper quadrants and the umbilical skin was then closed with 4-0 Monocryl subcuticular stitches. The Zhang catheter was left in place. Prior to decapitati on of the uterus with the SupraLoop, I had removed the uterine manipulator. Sponge, lap, and needle counts were correct x2. The patient tolerated the procedure well. [facility]. [id number]/[facility] #: [id number]
== END 2019-05-27 14:15 | disposition home or self-care (01) ==
LOC: OR 08:18 → SSU 12:59
PROVIDERS: ADMIT Obstetrics & Gynecology; ATTEND Obstetrics & Gynecology
DX: R10.2 Pelvic and perineal pain (principal); N92.0 Excessive and frequent menstruation with regular cycle; N93.9 Abnormal uterine and vaginal bleeding, unspecified; N94.5 Secondary dysmenorrhea; G89.29 Other chronic pain; F32.9 Major depressive disorder, single episode, unspecified; J45.909 Unspecified asthma, uncomplicated; Z86.19 Personal history of other infectious and parasitic diseases; Z87.891 Personal history of nicotine dependence
CPT/HCPCS: 36415; 85025; 88307; 96374; A9270-GY; G0378; J1100; J1580; J1885; J2250; J2405; J2704; J3010